=== PATIENT | male | born 1940 | race Caucasian/White ===

== ENCOUNTER 2019-04-07 01:06 | Emergency (ER) | payer MEDICARE, OTHER ==
[2019-04-07 03:20] LABS: #Basophils 0.1 thou/uL (0.0-0.2); #Eosinphils 0.2 thou/uL (0.0-0.7); #Lymphocytes 0.9 thou/uL (1.20-3.40); #Monocytes 0.8 thou/uL (0.11-0.59); #Neutrophils 5.2 thou/uL (1.40-6.50); %Basophils 0.7 % (0.0-1.0); %Eosinophils 2.5 % (0.0-10.0); %Lymphocytes 12.1 % (21.0-51.0); %Monocytes 11.4 % (0.0-10.0); %Neutrophils 73.2 % (42.0-75.0); Hemoglobin 12.7 g/dL (14.0-18.0); Mean Corpuscular HGB CONC 33.9 g/dL (32.0-36.0); Mean Corpuscular Hemoglobin 31.6 pg (27.0-31.0); Mean Corpuscular Volume 93.1 fL (78.0-98.0); Mean Platelet Volume 8.6 fL (7.4-10.4); Platelet Count 166 thou/uL (130-400); RBC Distribution Width 12.7 % (11.5-14.5); Red Blood Cell (RBC) Count 4.02 mill/uL (4.70-6.10); White Blood Cell (WBC) Count 7.1 thou/uL (4.8-10.8)
[2019-04-07 03:45] LABS: ALT (SGPT) 68 U/L (8-55); AST (SGOT) 75 U/L (5-34); Albumin 3.1 g/dL (3.4-4.8); Alkaline Phosphatase 93 U/L (40-110); Anion Gap 14 mmol/L (10-20); BUN (Urea Nitrogen) 9 mg/dL (8.4-25.7); Bilirubin, Total 0.7 mg/dL (0.2-1.2); Calc. Creatinine Clearance 0 mL/min (70-130); Calcium 8.4 mg/dL (7.8-10.44); Carbon Dioxide 23 mmol/L (23-31); Chloride 106 mmol/L (98-107); Estimated GFR-MDRD Greater than 90; Globulin 3.4 g/dL (2.4-3.5); Glucose 113 mg/dL (83-110); Potassium 3.9 mmol/L (3.5-5.1); Protein, Total 6.5 g/dL (5.8-8.1); Sodium 139 mmol/L (136-145)
--- NOTE | 2019-04-07 07:40 | CT ---
PRELIMINARY REPORT/[facility]/EMERGENCY AFTER HOURS PROCEDURE CT cervical spine Comparison: None Indication: ER 8... Possible fall; M79 reports to the ED with c/o bruising in the eyes Findings: No acute fracture or paravertebral soft tissue swelling. Degenerative change in the cervical spine. At least mild spinal canal narrowing associated with broad -based bulges of disc and bone between the levels of C4 and C7. This is most prominent at C6-7. There is at least moderate bony neuroforaminal narrowing at C5-6 and C6-7. Impression: No acute fracture or acute injury identified. Atherosclerosis. Degenerative change. No evidence of critical spinal canal narrowing. ELECTRONICALLY SIGNED BY: Jourdan Mirza MD Apr 07, 2019 2:22:05 AM HEALTH PROMOTER This report is intended for review by the ordering physician only, in accordance of law. If you recei ve this report in error, please call [facility] at [phone]. FINAL REPORT CT CERVICAL SPINE WITH CORONAL AND SAGITTAL REFORMATIONS: FINDINGS/IMPRESSION: I agree with the preliminary report given by Dr. Jourdan Mirza of [facility]. Transcribed Date/Time: 04/07/2019 7:44 AM
--- NOTE | 2019-04-07 07:52 | CT ---
PRELIMINARY REPORT/[facility]/EMERGENCY AFTER HOURS PROCEDURE CT face without contrast Comparison: None Indication: ER 8... Possible fall; M79 reports to the ED with c/o bruising in the eyes Findings: No acute fracture or dislocation. Normal airway and epiglottis. No intraorbital abnormality. Impression: No acute fracture or dislocation. ELECTRONICALLY SIGNED BY: Jourdan Mirza MD Apr 07, 2019 2:36:21 AM BOAT MECHANIC This report is intended for review by the ordering physician only, in accordance of law. If you recei ve this report in error, please call [facility] at [phone]. FINAL REPORT EMERGENT AFTER HOURS AFTER HOURS CT FACIAL BONES: IMPRESSION: Agree with the preliminary interpretation. No evidence for fracture. POS: OFF
--- NOTE | 2019-04-07 08:31 | CT ---
PRELIMINARY REPORT/[facility]/EMERGENCY AFTER HOURS PROCEDURE CT brain without contrast: Comparison: None Findings: No intracranial hemorrhage. No mass lesion. No midline shift or herniation. No definite evidence of acute ischemia or stroke. No hydrocephalus. Cerebral and cerebellar atrophy. No acute fracture. Intracranial atherosclerosis. The bones, sinuses and soft tissues are otherwise unremarkable. Impression: No acute intracranial abnormality. No fracture. ELECTRONICALLY SIGNED BY: Jourdan Mirza MD Apr 07, 2019 2:28:10 AM DIGITAL MANAGER This report is intended for review by the ordering physician only, in accordance of law. If you recei ve this report in error, please call [facility] at [phone]. FINAL REPORT EMERGENT AFTER HOURS CT OF THE BRAIN WITHOUT CONTRAST: FINDINGS/IMPRESSION: I agree with the findings and impression given in the preliminary report per [facility] physici an. No evidence of acute intracranial abnormality. POS: OFF
--- NOTE | 2019-04-09 15:04 | EKG ---
Test Reason : Blood Pressure : / mmHG Vent. Rate : 077 BPM Atrial Rate : 077 BPM P-R Int : 000 ms QRS Dur : 068 ms QT Int : 404 ms P-R-T Axes : 000 199 178 degrees QTc Int : 457 ms Normal sinus rhythm with occasional Premature ventricular complexes Septal infarct , age undetermined Lateral infarct , age undetermined Abnormal ECG Confirmed by JULISA KEVIN ([id number]), editorial manager ARISTIDES ALANIS ([id number]) on 04/09/2019 3:04:13 PM Referred By: Confirmed By:JULISA KEVIN
== END 2019-04-07 04:43 ==
LOC: ERS 01:06
DX: S00.12XA Contusion of left eyelid and periocular area, initial encounter (principal); S00.11XA Contusion of right eyelid and periocular area, initial encounter; R11.10 Vomiting, unspecified; R19.7 Diarrhea, unspecified; E78.00 Pure hypercholesterolemia, unspecified; M10.9 Gout, unspecified; F03.90 Unspecified dementia, unspecified severity, without behavioral disturbance, psychotic disturbance, mood disturbance, and anxiety; Z87.891 Personal history of nicotine dependence; Z79.899 Other long term (current) drug therapy
CPT/HCPCS: 70450; 70486; 72125; 80053; 84484; 85025; 93005

== ENCOUNTER 2020-04-03 11:38 | Inpatient (IN) | payer MEDICARE, OTHER ==
[2020-04-03 13:47] LABS: #Lymphocytes 0.9 thou/uL (1.20-3.40); #Monocytes 0.9 thou/uL (0.11-0.59); #Neutrophils 8.2 thou/uL (1.40-6.50); %Basophils 0.4 % (0.0-1.0); %Eosinophils 0.3 % (0.0-10.0); %Lymphocytes 9.3 % (21.0-51.0); %Monocytes 8.6 % (0.0-10.0); %Neutrophils 81.4 % (42.0-75.0); Hemoglobin 14.7 g/dL (14.0-18.0); Mean Corpuscular HGB CONC 32.8 g/dL (32.0-36.0); Mean Corpuscular Volume 94.6 fL (78.0-98.0); Mean Platelet Volume 10.3 fL (7.4-10.4); Platelet Count 117 thou/uL (130-400); RBC Distribution Width 14.2 % (11.5-14.5); Red Blood Cell (RBC) Count 4.76 mill/uL (4.70-6.10); White Blood Cell (WBC) Count 10.1 thou/uL (4.8-10.8)
--- NOTE | 2020-04-03 13:57 | RAD ---
Exam: Chest one view HISTORY:Possible allergic reaction Comparison: None FINDINGS: Cardiac silhouette: Normal Aorta: Atherosclerotic Pulmonary vessels: Normal Costophrenic angles: Clear LUNGS: Diminished lung volumes. Scattered interstitial and alveolar opacities. Left lower lobe infilt rate. Pneumothorax: None Osseous abnormalities: None IMPRESSION: 1. Atherosclerosis 2. Left lower lobe infiltrate. Scattered interstitial and alveolar opacities. Correlate for additiona l areas of infiltrate, possibly due to an atypical pneumonia. Correlate for patient's COVID status.
[2020-04-03 14:04] LABS: Platelet Morphology Comment Appears Decreased; RBC Morphology Normal
[2020-04-03] MEDS ORDERED: Cefepime 2 GM VIAL ONE (14:06)
[2020-04-03 14:08] LABS: ALT (SGPT) 19 U/L (8-55); AST (SGOT) 19 U/L (5-34); Albumin 3.2 g/dL (3.4-4.8); Alkaline Phosphatase 127 U/L (40-110); Anion Gap 12 mmol/L (10-20); BUN (Urea Nitrogen) 16 mg/dL (8.4-25.7); Bilirubin, Total 1.1 mg/dL (0.2-1.2); Calc. Creatinine Clearance 0 mL/min (70-130); Calcium 8.6 mg/dL (7.8-10.44); Carbon Dioxide 27 mmol/L (23-31); Chloride 119 mmol/L (98-107); Globulin 3.9 g/dL (2.4-3.5); Glucose 108 mg/dL (83-110); Potassium 3.3 mmol/L (3.5-5.1); Protein, Total 7.1 g/dL (5.8-8.1); Sodium 155 mmol/L (136-145)
[2020-04-03] MEDS ORDERED: Vancomycin 1 GM/200 ML BAG ONE (15:03)
[2020-04-03] MEDS ORDERED: methylPREDNISolone Sod Succ/PF 125 MG/2 ML VIAL ONE (15:37)
[2020-04-03 16:53] LABS: SARS-CoV-2 NAA Rapid Test DETECTED (NotDetected)
[2020-04-03] MEDS ORDERED: Acetaminophen 325 MG TAB PO PRN (17:14)
[2020-04-03] MEDS ORDERED: Senokot S 8.6-50 MG TAB PO PRN (17:14)
[2020-04-03] MEDS ORDERED: Acetaminophen 650 MG Suppository PR PRN (17:14)
[2020-04-03] MEDS ORDERED: Sodium Chloride 0.9% 1,000 ML IV SCH (17:15)
[2020-04-03] MEDS ORDERED: diphenhydrAMINE 50 MG/ML VIAL IVP PRN (17:19)
--- NOTE | 2020-04-03 18:47 | HP ---
CHIEF COMPLAINT: Swollen lips. HISTORY OF PRESENT ILLNESS: A 80-year-old male, residing at [facility], history of Alzheimer, presenting with lip swelling for the last 12 hours or so. He was tested positive roughly two weeks ago and chest x-ray here showed left lower lobe infiltrate and scattered interstitial and alveolar opacities. [facility], it appears that they noticed lip swelling only this morning. The patient is not taking lisinopril. He is not diabetic. He does have a history of gout. There is a concern whether the COVID is related to the swelling of the lips. The patient also presenting with sodium of 155 and potassium 3.3. With dementia, it appears that he is not having any good p.o. intake. Currently, he is protecting his airway. No palpable nodes appreciated in the neck. He will be admitted for cellulitis around the lip swelling as well as COVID pneumonia. is at bedside giving me some information that the swelling is only started this morning. They did notice anything at the jail last evening. [facility]. REVIEW OF SYSTEMS: Not obtainable directly from the patient. However, it is noted that he did not have any recent fever, chills. However, he was tested positive for COVID two weeks ago. PAST MEDICAL HISTORY: 1. Alzheimer's dementia. 2. Chronic anemia. 3. Hypertension. 4. Hyperlipidemia. 5. Gout. 6. Dementia. SOCIAL HISTORY: The patient lives at [facility]. FAMILY HISTORY: Noncontributory. PHYSICAL EXAMINATION: VITAL SIGNS: He is afebrile currently. Normotensive in the monitor. GENERAL: He appears nontoxic, protecting his airway. He is oriented to himself. HEENT: His lips are moderately swollen and erythema and tender. No lymph nodes palpable. tongue is not swollen also he is not able to open his mouth wide. CARDIOVASCULAR: Regular rate and rhythm without murmurs, rubs, or gallops. LUNGS: Clear to auscultation bilaterally without wheezing, rales, or rhonchi. ABDOMEN: Soft, nontender, nondistended. Good bowel sounds. EXTREMITIES: Without any pitting edema and rash. NEUROLOGIC: The patient is oriented to himself with underlying history of dementia. He is moving his extremities spontaneously. LABORATORY DATA: Sodium 155, potassium 3.3, alkaline phosphatase 127. Rest of the CMP panel in the normal range. CBC: WBC 10.1, hemoglobin 14.7, platelet is 117,000. IMAGING DATA: Chest x-ray, left lower lobe infiltrate. IMPRESSION AND PLAN: This is a 80-year-old demented gentleman presenting with angioedema. 1. The patient is not on lisinopril. There is concern whether this is related to COVID as he was tested positive roughly two weeks ago. We will monitor him closely. Meanwhile, provide Solu-Medrol, Protonix, and Benadryl as needed. Given the cellulitis around the lips, I will also cover him with clindamycin. 2. We will probably have to do screening again for admission purpose. I also got a C1 esterase inhibitor, but it is a low threshold to be related. 3. Hypernatremia. Obviously, the patient is not oriented to be able to have some good p.o. intake, IV fluid and repeat the sodium level in the morning. 4. His creatinine is in the normal range. We will put him DVT prophylaxis, Lovenox. COVID is tested and it came back positive, so continue with IV steroid and I will defer putting him on any p.o. vitamins until the speech therapy evaluate him. He will be strict n.p.o. for now. 5. Full code. Job ID: [id number] MTDD
[2020-04-03] MEDS ORDERED: Dextrose 5 %-0.45 % NaCl 1,000 ML IV SCH (19:30)
[2020-04-03] MEDS ORDERED: Dextrose 5% w/ 20 mEq KCl 1,000 ML IV SCH (19:45)
[2020-04-03] MEDS: Clindamycin/D5W 600 MG in Premix Bag 1 BAG IVPB SCH (21:15)
[2020-04-03] MEDS: methylPREDNISolone Sod Succ 40 MG VIAL IVP SCH (23:30)
[2020-04-04] MEDS ORDERED: Lorazepam 2 MG/ML VIAL ONE (02:00)
[2020-04-04] MEDS ORDERED: Clindamycin/D5W 600 mg/50 ml Premix Bag ONE (03:59)
[2020-04-04] MEDS: Clindamycin/D5W 600 MG in Premix Bag 1 BAG IVPB SCH ×3 (05:25→21:22)
[2020-04-04 07:14] LABS: Anion Gap 11 mmol/L (10-20); BUN (Urea Nitrogen) 19 mg/dL (8.4-25.7); Calc. Creatinine Clearance 70 mL/min (70-130); Calcium 8.1 mg/dL (7.8-10.44); Carbon Dioxide 27 mmol/L (23-31); Chloride 119 mmol/L (98-107); Glucose 171 mg/dL (83-110); Potassium 3.4 mmol/L (3.5-5.1); Sodium 154 mmol/L (136-145)
[2020-04-04 07:17] LABS: Hemoglobin 12.4 g/dL (14.0-18.0); Mean Corpuscular HGB CONC 32.9 g/dL (32.0-36.0); Mean Corpuscular Hemoglobin 31.1 pg (27.0-31.0); Mean Corpuscular Volume 94.6 fL (78.0-98.0); Mean Platelet Volume 10.5 fL (7.4-10.4); Platelet Count 105 thou/uL (130-400); RBC Distribution Width 13.6 % (11.5-14.5)
[2020-04-04 08:31] LABS: Band 25 % (5-11); Lymphocytes 7 % (21-51); MDiff Complete? YES; Monocytes 2 % (0-10); Neutrophil 65 % (42-75); Platelet Morphology Comment Appears Decreased; Polychromasia SLIGHT = 2-3 cells (100X) (0-2/hpf); Reactive Lymphocytes 1 % (0-10)
[2020-04-04] MEDS: Pantoprazole 40 MG VIAL IVP SCH (08:33)
[2020-04-04] MEDS: methylPREDNISolone Sod Succ 40 MG VIAL IVP SCH ×3 (08:33→23:01)
[2020-04-04] MEDS ORDERED: Calcium Carbonate 500 MG ChewTAB PO PRN (08:43)
[2020-04-04] MEDS ORDERED: Ondansetron PF 4 MG/2 ML Vial IVP PRN (08:43)
[2020-04-04] MEDS ORDERED: Diabetic Tussin 200 MG/10 ML UDCUP PO PRN (08:43)
[2020-04-04] MEDS ORDERED: Loratadine 10 MG TAB PO PRN (08:43)
[2020-04-04] MEDS ORDERED: Ondansetron ODT 4 MG TAB PO PRN (08:43)
[2020-04-04] MEDS ORDERED: hydrALAZINE 20 MG/ML VIAL SLOW IVP PRN (08:43)
[2020-04-04] MEDS ORDERED: Cepastat Lozenges 1 LOZ PO PRN (08:43)
[2020-04-04] MEDS ORDERED: Sodium Chloride 0.65% Nasal 44 ML BOT EA NARE PRN (08:43)
[2020-04-04] MEDS ORDERED: Zolpidem Tartrate 5 MG TAB PO PRN (08:43)
[2020-04-04] MEDS ORDERED: Loperamide HCl 2 MG CAP PO PRN (08:43)
[2020-04-04] MEDS: Enoxaparin Sodium 40 MG/0.4 ML SYRINGE SC SCH (10:25)
--- NOTE | 2020-04-04 12:10 | PDOC.HOSPP ---
- Subjective Encounter Date: 04/04/20 Encounter Time: 08:40 Subjective: Patient is delirious, he is not following any command, - Objective Vital Signs & Weight: Vital Signs (12 hours) Temp Pulse Resp BP Pulse Ox 04/04/20 08:00 97.3 F L 53 L 21 H 144/78 H 93 L Weight Weight 150 lb 6.4 oz I&O: 04/03/20 04/04/20 04/05/20 06:59 06:59 06:59 Intake Total 640 Balance 640 Result Diagrams: 04/04/20 06:38 04/04/20 06:38 Radiology Reviewed by me: Yes Hospitalist ROS - Review of Systems ROS unobtainable: due to mental status - Medication Medications: Active Medications Generic Name Dose Route Start Last Admin Trade Name Freq PRN Reason Stop Dose Admin Enoxaparin Sodium 40 mg 04/04/20 09:00 04/04/20 10:25 Enoxaparin Sodium 40 Mg/0.4 Ml Syringe SC Not Given DAILY ANURAG Clindamycin Phosphate/Dextrose 50 mls @ 100 mls/hr 04/03/20 22:00 04/04/20 05:25 600 mg/ Device IVPB Not Given Q8HR ANURAG Potassium Chloride/Dextrose 1,000 mls @ 50 mls/hr 04/03/20 19:45 04/03/20 21:42 D5w W/ 20 Meq Kcl IV 04/04/20 15:44 1,000 mls .Q20H ANURAG Administration Methylprednisolone Sodium Succinate 40 mg 04/03/20 23:59 04/04/20 08:33 Methylprednisolone Sod Succ 40 Mg Vial IVP 40 mg 0800,1600,2359 ANURAG Administration Pantoprazole Sodium 40 mg 04/04/20 09:00 04/04/20 08:33 Pantoprazole 40 Mg Vial IVP 40 mg DAILY ANURAG Administration - Exam General Appearance: NAD, ill appearing Eye: PERRL, anicteric sclera ENT: dry oral mucosa ENT - other findings: Poor oral hygiene Neck: supple, symmetric, no JVD, no thyromegaly Heart: RRR, no murmur, no gallops, no rubs Respiratory: no wheezes, no rales, no ronchi Respiratory - other findings: Coarse breath sound Gastrointestinal: soft, non-tender, non-distended Extremities: no clubbing, no edema Skin: normal turgor, no lesions Neurological - other findings: He moves all 4 limbs, Hosp A/P (1) Pneumonia due to 2019 novel coronavirus Code(s): U07.1 - COVID-19; J12.82 - PNEUMONIA DUE TO CORONAVIRUS DISEASE 2019 Status: Acute (2) Acute metabolic encephalopathy Code(s): G93.41 - METABOLIC ENCEPHALOPATHY Status: Acute (3) Hypernatremia Code(s): E87.0 - HYPEROSMOLALITY AND HYPERNATREMIA Status: Acute (4) Hypokalemia Code(s): E87.6 - HYPOKALEMIA Status: Acute (5) Dehydration Code(s): E86.0 - DEHYDRATION Status: Acute (6) COVID-19 Code(s): U07.1 - COVID-19 Status: Acute (7) Alzheimer's dementia Code(s): G30.9 - ALZHEIMER'S DISEASE, UNSPECIFIED; F02.80 - DEMENTIA IN OTH DISEASES CLASSD ELSWHR W/O BEHAVRL DISTURB Status: Chronic Qualifiers: Alzheimer's disease onset: late-onset Dementia behavioral disturbance: with behavioral disturbance Qualified Code(s): G30.1 - Alzheimer's disease with late onset; F02.81 - Dementia in other diseases classified elsewhere with be havioral disturbance - Plan old records reviewed/req, continue antibiotics, speech therapy, DVT proph w/lovenox Continue clindamycin for suspected aspiration pneumonia Speech therapy evaluated and cleared for diet change IV fluid to dextrose with water for hypernatremia Replace potassium Oral hygiene Medication reviewed and continue for symptomatic and supportive care We will repeat labs tomorrow Change to inpatient status I have left voicemail to patient's about current condition and updated plan
[2020-04-04] MEDS: Dextrose 5% in Water 1,000 ML IV SCH ×2 (12:27→21:23)
[2020-04-04 13:08] VITALS: BMI 24.3
[2020-04-05] MEDS: Dextrose 5% in Water 1,000 ML IV SCH (04:05)
[2020-04-05] MEDS: Clindamycin/D5W 600 MG in Premix Bag 1 BAG IVPB SCH ×2 (06:00→15:12)
[2020-04-05 06:52] LABS: #Lymphocytes 1.1 thou/uL (1.20-3.40); #Monocytes 0.5 thou/uL (0.11-0.59); #Neutrophils 10.9 thou/uL (1.40-6.50); %Basophils 0.1 % (0.0-1.0); %Lymphocytes 8.9 % (21.0-51.0); %Monocytes 3.8 % (0.0-10.0); %Neutrophils 87.2 % (42.0-75.0); Hemoglobin 12.7 g/dL (14.0-18.0); Mean Corpuscular HGB CONC 33.5 g/dL (32.0-36.0); Mean Corpuscular Volume 92.4 fL (78.0-98.0); Mean Platelet Volume 10.5 fL (7.4-10.4); Platelet Count 123 thou/uL (130-400); RBC Distribution Width 13.5 % (11.5-14.5); White Blood Cell (WBC) Count 12.5 thou/uL (4.8-10.8)
[2020-04-05 07:12] LABS: Anion Gap 13 mmol/L (10-20); BUN (Urea Nitrogen) 19 mg/dL (8.4-25.7); Calc. Creatinine Clearance 69 mL/min (70-130); Calcium 8.1 mg/dL (7.8-10.44); Carbon Dioxide 26 mmol/L (23-31); Chloride 113 mmol/L (98-107); Glucose 137 mg/dL (83-110); Potassium 3.7 mmol/L (3.5-5.1); Sodium 148 mmol/L (136-145)
[2020-04-05] MEDS: Pantoprazole 40 MG VIAL IVP SCH (08:19)
[2020-04-05] MEDS: Enoxaparin Sodium 40 MG/0.4 ML SYRINGE SC SCH (08:20)
[2020-04-05] MEDS: methylPREDNISolone Sod Succ 40 MG VIAL IVP SCH ×2 (08:20→16:12)
--- NOTE | 2020-04-05 11:06 | PDOC.DS.DS ---
Provider - Provider Date of Admission: 04/04/20 12:08 Date of Discharge: 04/05/20 Admitting Provider: Mally Bennett MD Primary Care Physician: Curt Ridley MD Course - Hospital Course Hospital Course: Patient has Alzheimer's dementia, he was brought to emergency room for suspected lip swelling, patient was not able to provide any history, patient was tested positive for COVID-19, he had x-ray chest which showed left lower lobe pneumonia which we suspected from either aspiration or Covid related, patient was on room air, while in hospital, he had free water deficit5 patient was given dextrose with water and his sodium and chloride was improving, on discharge his leukocytosis related to the steroid because he was given Solu-Medrol for presumed angioedema, next day patient laboratory parameters were normal, he was also given clindamycin, we continued clindamycin for another 7 days, his influenza screen is negative, his Covid test is positive so we have provided vitamin supplementation, he will continue all other medication, speech therapy cleared him for diet, - Labs Lab Results: 04/05/20 06:22 04/05/20 06:22 Abnormal Lab Results - Last 48 hrs 04/03/20 13:25: Sodium 155 H, Potassium 3.3 L, Chloride 119 H, Alkaline Andriy sphatase 127 H, Albumin 3.2 L, Globulin 3.9 H, Albumin/Globulin Ratio 0.8 L 04/03/20 13:25: Plt Count 117 L, Neutrophils % 81.4 H, Lymphocytes % 9.3 L, Neutrophils # 8.2 H, Lymphocytes # 0.9 L, Monocytes # 0.9 H, Plt Morphology Comment Appears Decreased L 04/03/20 15:37: SARS-CoV-2 Rap RNA(RT-PCR) DETECTED A* 04/03/20 18:09: C-Reactive Protein 8.16 H 04/04/20 06:38: Sodium 154 H, Potassium 3.4 L, Chloride 119 H 04/04/20 06:38: RBC 4.00 L, Hgb 12.4 L, Hct 37.8 L, MCH 31.1 H, Plt Count 105 L, MPV 10.5 H, Band Neuts % (Manual) 25 H, Lymphocytes % (Manual) 7 L, Plt Morphol ogy Comment Appears Decreased L 04/05/20 06:22: Sodium 148 H, Chloride 113 H 04/05/20 06:22: WBC 12.5 H, RBC 4.10 L, Hgb 12.7 L, Hct 37.9 L, Plt Count 123 L, MPV 10.5 H, Neutrophils % 87.2 H, Lymphocytes % 8.9 L, Neutrophils # 10.9 H, Lymphocytes # 1.1 L Microbiology - Entire Visit 04/03/20 13:34 Venous blood - Right Arm Blood Culture - Preliminary Specimen has been received and culture in progress. No Growth to date. 04/03/20 13:25 Venous blood - Left Arm Blood Culture - Preliminary Specimen has been received and culture in progress. No Growth to date. - Diagnostic Interpretation Other Status: image reviewed by me Chest x-ray Status: image reviewed by me Additional comments: Left lower lobe infiltration - Physical Exam Vitals: Vital Signs (12 hours) Temp Pulse Resp BP BP Pulse Ox 04/05/20 07:24 97.6 F 81 15 113/72 96 04/05/20 04:00 97.1 F L 52 L 18 142/86 H 97 Weight Admit Weight 150 lb 6.4 oz Weight 150 lb 9.6 oz Physical Exam: The patient was seen and examined on the day of discharge. General patient is currently alert and awake no acute distress Head normocephalic atraumatic Neck supple no JVD no meningeal signs of rotation Lungs clear to auscultation without any rhonchi or rales Cardiac S1-S2 regular, no murmur no gallop no rub Abdomen soft, bowel sound present, nontender nondistended no organomegaly no mass Extremity no edema good distal pulsation Skin no skin rash Hematological system no lymphadenopathy Neurologic nonfocal examination Problem - Problem (1) Pneumonia due to 2019 novel coronavirus Code(s): U07.1 - COVID-19; J12.82 - PNEUMONIA DUE TO CORONAVIRUS DISEASE 2019 Status: Acute (2) Acute metabolic encephalopathy Code(s): G93.41 - METABOLIC ENCEPHALOPATHY Status: Acute (3) Hypernatremia Code(s): E87.0 - HYPEROSMOLALITY AND HYPERNATREMIA Status: Acute (4) Hypokalemia Code(s): E87.6 - HYPOKALEMIA Status: Acute (5) Dehydration Code(s): E86.0 - DEHYDRATION Status: Acute (6) COVID-19 Code(s): U07.1 - COVID-19 Status: Acute (7) Alzheimer's dementia Code(s): G30.9 - ALZHEIMER'S DISEASE, UNSPECIFIED; F02.80 - DEMENTIA IN OTH DISEASES CLASSD ELSWHR W/O BEHAVRL DISTURB Status: Chronic Qualifiers: Alzheimer's disease onset: late-onset Dementia behavioral disturbance: with behavioral disturbance Qualified Code(s): G30.1 - Alzheimer's disease with late onset; F02.81 - Dementia in other diseases classified elsewhere with behavioral disturbance Plan - Discharge Medications Prescriptions: Clindamycin HCl 300 mg PO Q6HR #30 capsule Famotidine [Pepcid] 20 mg PO BID #30 tab Ascorbic Acid [Vitamin C] 1,000 mg PO DAILY #14 tablet Zinc Sulfate 220 mg PO DAILY #14 tablet Home Medications: Medication Instructions Recorded Confirmed Type Allopurinol 100 mg PO DAILY 10/18/13 10/18/13 History Atorvastatin Calcium [Lipitor] 20 mg PO DAILY 10/18/13 10/18/13 History Memantine HCl [Namenda] 10 mg PO BID 10/18/13 10/18/13 History Acetaminophen [Tylenol Regular 650 mg PO Q4HR PRN 10/22/13 10/22/13 History Strength] Ferrous Sulfate [Iron] 325 mg PO BID-WM 10/22/13 10/22/13 History Ascorbic Acid [Vitamin C] 1,000 mg PO DAILY #14 tablet 04/05/20 Rx Clindamycin HCl 300 mg PO Q6HR #30 capsule 04/05/20 Rx Famotidine [Pepcid] 20 mg PO BID #30 tab 04/05/20 Rx Zinc Sulfate 220 mg PO DAILY #14 tablet 04/05/20 Rx Allergies: No Known Drug Allergies Allergy (Verified 04/03/20 20:12) - Discharge Instructions Activity:: Activity as Tolerated Nourishment:: Heart Healthy Diet Additional Dietary Instructions:: Extra gravy with sauce. Thin liquid by cup Therapies:: Not Applicable Equipment/Supplies:: Not Applicable IV Therapy:: Not Applicable - Follow up Plan Referrals: Curt Ridley MD [Primary Care Provider] - Disposition: HOME Quality - Care Measures CORE MEASURES:: N/A
[2020-04-05 16:04] VITALS: BP 128/72; TEMP 97.9
== END 2020-04-05 17:30 | DRG 177 ==
LOC: ERS 11:38 → T4-B 16:02 → OBSVTOIN 04-04 12:08
PROVIDERS: ADMIT Internal Medicine; ATTEND Internal Medicine
DX: U07.1 COVID-19 (principal); J12.82 Pneumonia due to coronavirus disease 2019; G93.41 Metabolic encephalopathy; L03.116 Cellulitis of left lower limb; E87.0 Hyperosmolality and hypernatremia; E78.00 Pure hypercholesterolemia, unspecified; M10.9 Gout, unspecified; F02.80 Dementia in other diseases classified elsewhere, unspecified severity, without behavioral disturbance, psychotic disturbance, mood disturbance, and anxiety; I10 Essential (primary) hypertension; E78.5 Hyperlipidemia, unspecified; K13.0 Diseases of lips; D64.9 Anemia, unspecified; G30.9 Alzheimer's disease, unspecified; E86.0 Dehydration; E87.6 Hypokalemia; Z87.891 Personal history of nicotine dependence; Z79.899 Other long term (current) drug therapy
CPT/HCPCS: 0240U; 36415; 71045; 80048; 80053; 83605; 85007; 85025; 85027; 86140; 86161; 87040; 96365; 96366; 96367; 96375; C9113; J0692; J1650; J2060; J2920; J2930; J3370; J3480; J3490

== ENCOUNTER 2020-04-08 09:23 | Inpatient (IN) | payer MEDICARE, OTHER ==
--- NOTE | 2020-04-08 10:13 | RAD ---
XR Chest 1 View Portable History: Altered mental status Comparison: Radiograph 2006 Findings: Lungs are hypoinflated. Heart size is enlarged. Concern for patchy peripheral airspace opac ities. Impression: Commonly reported imaging findings of COVID-19 pneumonia.
[2020-04-08 10:22] LABS: Bilirubin Negative (Negative); Blood, Urine Negative (Negative); Clarity Clear (Clear); Glucose, Urine (Dipstick) Normal (Negative); Ketone, Urine Negative (Negative); Leukocyte Negative Leu/uL (Negative); Nitrite Negative (Negative); Protein, Urine (Dipstick) Negative (Neg-Trace); Specific Gravity, Urine 1.022 (1.002-1.036); Urobilinogen 3 mg/dL (Less than 2)
[2020-04-08 10:26] LABS: Hemoglobin 14.4 g/dL (14.0-18.0); Mean Corpuscular HGB CONC 34.2 g/dL (32.0-36.0); Mean Corpuscular Hemoglobin 31.2 pg (27.0-31.0); Mean Corpuscular Volume 91.1 fL (78.0-98.0); RBC Distribution Width 13.6 % (11.5-14.5); White Blood Cell (WBC) Count 6.5 thou/uL (4.8-10.8)
[2020-04-08 10:30] LABS: ALT (SGPT) 21 U/L (8-55); AST (SGOT) 20 U/L (5-34); Albumin 3.4 g/dL (3.4-4.8); Alkaline Phosphatase 123 U/L (40-110); Anion Gap 14 mmol/L (10-20); BUN (Urea Nitrogen) 16 mg/dL (8.4-25.7); CK (CPK) 82 U/L (30-200); Calc. Creatinine Clearance 0 mL/min (70-130); Calcium 8.1 mg/dL (7.8-10.44); Carbon Dioxide 27 mmol/L (23-31); Chloride 104 mmol/L (98-107); Globulin 3.2 g/dL (2.4-3.5); Glucose 137 mg/dL (83-110); Lipase 102 U/L (8-78); Potassium 3.1 mmol/L (3.5-5.1); Protein, Total 6.6 g/dL (5.8-8.1); Sodium 142 mmol/L (136-145)
[2020-04-08 10:39] LABS: #Eosinphils 0.1 thou/uL (0.0-0.7); #Lymphocytes 1.3 thou/uL (1.20-3.40); #Monocytes 0.3 thou/uL (0.11-0.59); #Neutrophils 4.8 thou/uL (1.40-6.50); %Basophils 0.4 % (0.0-1.0); %Eosinophils 1.2 % (0.0-10.0); %Lymphocytes 19.9 % (21.0-51.0); %Monocytes 4.7 % (0.0-10.0); %Neutrophils 73.9 % (42.0-75.0); Large Platelets SLIGHT; MDiff Complete? YES; Mean Platelet Volume 10.5 fL (7.4-10.4); Platelet Count 107 thou/uL (130-400); Platelet Morphology Comment Appears Decreased
[2020-04-08 10:51] LABS: CKMB 2.9 ng/mL (0-6.6)
[2020-04-08] MEDS ORDERED: Aspirin Chewable 81 MG TAB ONE (10:58)
[2020-04-08] MEDS ORDERED: Azithromycin 500 MG VIAL ONE (10:58)
[2020-04-08] MEDS ORDERED: Dexamethasone 10 MG/ML VIAL ONE (10:58)
[2020-04-08] MEDS ORDERED: cefTRIAXone\\ROCEPHIN 2 GM VIAL ONE (10:58)
--- NOTE | 2020-04-08 11:41 | PDOC.HHP ---
Hospitalist HPI - History of Present Illness hypotension, COVID History of Present Illness: Patient lying in ER bed, appears to be sleeping. Easily arousable but non verbal. Vitals stable at time of assessment. 98% on RA. 98/72 BP. Patient was positive for COVID 1 week ago. Lives at [facility]. Dr. Cho is patient's PCP. Medical records obtained from [facility]. ED Course: EKG Showed NSR at 90 bpm. UA negative, WBC normal at 6.5. Patient was given Azithromycin, Lovenox, aspirin, Ceftriaxone, Decadron while in ER. Hospitalist ROS - Review of Systems ROS unobtainable: due to mental status - Medication Medications: Clindamycin 300mg 1 capsule oral every 6 hours Famotidine 20mg 1 tablet oral daily Vitamin C 1000mg 1 tablet oral daily Zinc Sulfate 220mg 1 tablet oral daily Namenda 10mg 1 tablet oral BID Atorvastatin 20mg 1 tablet oral daily Allopurinol 100mg 1 tablet oral daily Tylenol 650mg 1 tablet oral Q4hrs PRN pain Ferrous Sulfate 325mg 1 tablet oral BID with meals Hospitalist History - Past Medical History Source: fdc record ([facility]) Cardiac: reports: Hyperlipidemia Pulmonary: reports: no pertinent history SAMPLE CLERK: reports: Other (Alzheimers) Gastrointestinal: reports: no pertinent history, GERD Heme/Onc: reports: no pertinent history Musculoskeletal: reports: no pertinent history Rheumatologic: reports: Gout Infectious Disease: reports: no pertinent history ENT: reports: no pertinent history Renal/: reports: no pertinent history Endocrine: reports: no pertinent history Dermatology: reports: no pertinent history - Past Surgical History Past Surgical History: reports: Hernia Repair (inguinal) - Family History Family History: reports: no pertinent history - Social History Smoking Status: Never smoker Alcohol: reports: None Drugs: reports: none Living Situation: Snf ([facility]) Domestic Violence: Negative - Exam General Appearance: NAD Eye: PERRL (conjunctiva), anicteric sclera ENT: normocephalic atraumatic, no oropharyngeal lesions, moist mucosa Neck: supple, symmetric, no JVD, no thyromegaly, no lymphadenopathy, no carotid bruit Heart: RRR, no murmur, no gallops, no rubs, normal peripheral pulses Respiratory: CTAB, no wheezes, no rales, no ronchi, normal chest expansion, no tachypnea, normal percussion Gastrointestinal: soft, non-tender, non-distended, normal bowel sounds, no palpable masses, no hepatomegaly, no splenomegaly, no bruit Skin: normal turgor, no lesions, no rashes Neurological: cranial nerve grossly intact, normal sensation to touch Musculoskeletal: normal tone, normal strength, no muscle wasting Psychiatric: normal affect, normal behavior, not oriented Hospitalist Results - Labs Result Diagrams: 04/08/20 09:55 04/08/20 09:55 Lab results: WBC 6.5 thou/uL (4.8-10.8) 04/08/20 09:55 Hgb 14.4 g/dL (14.0-18.0) 04/08/20 09:55 Hct 41.9 % (42.0-52.0) L 04/08/20 09:55 MCV 91.1 fL (78.0-98.0) 04/08/20 09:55 Plt Count 107 thou/uL (130-400) L 04/08/20 09:55 Neutrophils % 73.9 % (42.0-75.0) 04/08/20 09:55 Sodium 142 mmol/L (136-145) 04/08/20 09:55 Potassium 3.1 mmol/L (3.5-5.1) L 04/08/20 09:55 Chloride 104 mmol/L (98-107) 04/08/20 09:55 Carbon Dioxide 27 mmol/L (23-31) 04/08/20 09:55 BUN 16 mg/dL (8.4-25.7) 04/08/20 09:55 Creatinine 0.96 mg/dL (0.7-1.3) 04/08/20 09:55 Glucose 137 mg/dL (83-110) H 04/08/20 09:55 Lactic Acid 2.0 mmol/L (0.5-2.2) 04/08/20 09:55 Calcium 8.1 mg/dL (7.8-10.44) 04/08/20 09:55 Total Bilirubin 1.0 mg/dL (0.2-1.2) 04/08/20 09:55 AST 20 U/L (5-34) 04/08/20 09:55 ALT 21 U/L (8-55) 04/08/20 09:55 Alkaline Phosphatase 123 U/L (40-110) H 04/08/20 09:55 Creatine Kinase 82 U/L (30-200) 04/08/20 09:55 CK-MB (CK-2) 2.9 ng/mL (0-6.6) 04/08/20 09:55 Troponin I 0.029 ng/mL (< 0.028) H 04/08/20 09:55 B-Natriuretic Peptide 62.4 pg/mL (0-100) 04/08/20 09:55 Serum Total Protein 6.6 g/dL (5.8-8.1) 04/08/20 09:55 Albumin 3.4 g/dL (3.4-4.8) 04/08/20 09:55 Lipase 102 U/L (8-78) H 04/08/20 09:55 Urine Ketones Negative mg/dL (Negative) 04/08/20 10:03 Urine Blood Negative (Negative) 04/08/20 10:03 Urine Nitrite Negative (Negative) 04/08/20 10:03 Ur Leukocyte Esterase Negative Ashley/uL (Negative) 04/08/20 10:03 Hospitalist H&P A/P - Problem (1) Hypotension Status: Acute (2) Pneumonia due to COVID-19 virus Code(s): U07.1 - COVID-19; J12.82 - PNEUMONIA DUE TO CORONAVIRUS DISEASE 2019 Status: Acute (3) Alzheimer's disease Code(s): G30.9 - ALZHEIMER'S DISEASE, UNSPECIFIED; F02.80 - DEMENTIA IN OTH DISEASES CLASSD ELSWHR W/O BEHAVRL DISTURB Status: Chronic (4) Hyperlipidemia Code(s): E78.5 - HYPERLIPIDEMIA, UNSPECIFIED Status: Chronic (5) Gout Code(s): M10.9 - GOUT, UNSPECIFIED Status: Chronic (6) GERD (gastroesophageal reflux disease) Code(s): K21.9 - GASTRO-ESOPHAGEAL REFLUX DISEASE WITHOUT ESOPHAGITIS Status: Chronic - Plan Plan: 80 year old male with history of Alzheimer's, hyperlipidemia, Gout and GERD. Patient is a resident of [facility]. Hypotension: -continue to monitor BP. -Reported the fdc, appears normal at ER. -IV fluid bolus as needed. COVID pneumonia: -Draw inflammatory markers. -Decadron held due to patient not being hypoxic. -Patient on RA in ER, maintaing oxygen, oxygen assistance as needed. -Albuterol inhaler. -Start Pantoprazole. -Start Vitamins -WBC normal. Alzheimers: -Continue Namenda home medication. Hyperlipidemia: -Continue Atorvastatin home medication. Gout: -Continue Allopurinol home medication. GERD: -Continue Famotidine home medication. Elevated lipase: -Repeat lipase Continue current home medications.
[2020-04-08] MEDS ORDERED: Enoxaparin Sodium 60 MG/0.6 ML SYRINGE ONE (11:59)
[2020-04-08] MEDS ORDERED: Albuterol 200 PUFF (6.7GM INHALER) INH PRN (12:12)
[2020-04-08 14:02] LABS: Troponin I 0.022 ng/mL (< 0.028)
[2020-04-08 15:57] VITALS: BMI 26.3
[2020-04-09] MEDS ORDERED: Potassium Phosphate 30 MMOL in Sodium Chloride 0.9% 250 ML 250 ML IVPB SCH (07:45)
[2020-04-09 08:47] LABS: #Eosinphils 0.1 thou/uL (0.0-0.7); #Lymphocytes 2.4 thou/uL (1.20-3.40); #Monocytes 0.7 thou/uL (0.11-0.59); %Basophils 0.4 % (0.0-1.0); %Eosinophils 1.2 % (0.0-10.0); %Lymphocytes 25.8 % (21.0-51.0); %Monocytes 7.1 % (0.0-10.0); %Neutrophils 65.5 % (42.0-75.0); Hemoglobin 13.4 g/dL (14.0-18.0); Mean Corpuscular HGB CONC 34.1 g/dL (32.0-36.0); Mean Corpuscular Hemoglobin 30.9 pg (27.0-31.0); Mean Corpuscular Volume 90.5 fL (78.0-98.0); Mean Platelet Volume 10.5 fL (7.4-10.4); Platelet Count 110 thou/uL (130-400); RBC Distribution Width 13.5 % (11.5-14.5); Red Blood Cell (RBC) Count 4.33 mill/uL (4.70-6.10); White Blood Cell (WBC) Count 9.1 thou/uL (4.8-10.8)
[2020-04-09] MEDS: Enoxaparin Sodium 40 MG/0.4 ML SYRINGE SC SCH (08:55)
[2020-04-09] MEDS: Ascorbic Acid 500 mg Chewable Tablet PO SCH (08:56)
[2020-04-09] MEDS: Cholecalciferol 1,000 UNITS (25 MCG) TAB PO SCH (08:56)
[2020-04-09 09:03] LABS: Anion Gap 14 mmol/L (10-20); BUN (Urea Nitrogen) 10 mg/dL (8.4-25.7); Calc. Creatinine Clearance 96 mL/min (70-130); Calcium 7.6 mg/dL (7.8-10.44); Carbon Dioxide 19 mmol/L (23-31); Chloride 109 mmol/L (98-107); Glucose 68 mg/dL (83-110); Lipase 53 U/L (8-78); Potassium 3.2 mmol/L (3.5-5.1); Sodium 139 mmol/L (136-145)
--- NOTE | 2020-04-09 09:58 | PDOC.DS.DS ---
Provider - Provider Date of Admission: 04/08/20 14:50 Date of Discharge: 04/09/20 Admitting Provider: Henry Egan MD Primary Care Physician: Curt Ridley MD Course - Hospital Course Hospital Course: Mr. Saini is a 80-year-old male with a past medical history of hypertension, hyperlipidemia, Alzheimer's disease, gout, GERD who lives at [facility] who was transferred to the emergency room for concern of low blood pressure. intermediate reported that blood pressure was in the 70s systolic, however when EMS arrived systolic blood pressure was in the 100s. Blood pressures have been normal since patient presented to the emergency room. Patient tested positive for Covid 1 week ago, but has not had any symptoms. Patient's respiratory status has been normal and he has been 98% on room air the entire time. Patient was admitted for overnight observation and no abnormalities other than mild hypokalemia was found. Patient is at his baseline mental status. His vital signs have been stable. WBC 6.5, UA negative. Patient did receive azithromycin, Lovenox, aspirin, ceftriaxone and Decadron while in the emergency room, however since patient has no oxygen requirement none of these were continued. Chest x-ray showed question of mild patchy opacities, however poor inspiratory effort. Patient has not had any respiratory symptoms, no cough no fever or congestion. White blood cell count was normal. This morning patient at baseline mental status with no obvious complaints. Is not in any distress and has normal heart and lung sounds. Patient's potassium was repleted orally. He is medically safe for discharge back to his shelter at this time. Case was discussed with attending physician, Dr. Yoder who is in agreement with assessment and plan and that patient is ready for discharge. Pertinent Studies: CXR: Findings: Lungs are hypoinflated. Heart size is enlarged. Concern for patchy peripheral airspace opacities. Impression: Commonly reported imaging findings of COVID-19 pneumonia. Resuscitation Status: 04/08/20 12:12 Resuscitation Status Routine Co-Sign Provider: Resuscitation Status: FULL: Full Resuscitation - Labs Lab Results: 04/09/20 08:04 04/09/20 08:04 Abnormal Lab Results - Last 48 hrs 04/08/20 09:55: Potassium 3.1 L, Alkaline Phosphatase 123 H, Albumin/Globulin Ratio 1.1 L, Lipase 102 H 04/08/20 09:55: Troponin I 0.029 H 04/08/20 09:55: RBC 4.60 L, Hct 41.9 L, MCH 31.2 H, Plt Count 107 L, MPV 10.5 H, Lymphocytes % 19.9 L, Plt Morphology Comment Appears Decreased L 04/08/20 09:55: D-Dimer 2.52 H 04/08/20 10:03: Urine Urobilinogen 3 A 04/08/20 13:31: C-Reactive Protein 1.85 H 04/08/20 13:31: Ferritin 768.36 H 04/09/20 08:04: Potassium 3.2 L, Chloride 109 H, Carbon Dioxide 19 L, Creatinine 0.66 L, Calcium 7.6 L 04/09/20 08:04: RBC 4.33 L, Hgb 13.4 L, Hct 39.2 L, Plt Count 110 L, MPV 10.5 H, Monocytes # 0.7 H Microbiology - Entire Visit 04/08/20 09:55 Venous blood - Left Arm Blood Culture - Preliminary Specimen has been received and culture in progress. No Growth to date. - Physical Exam Vitals: Vital Signs (12 hours) Temp Pulse Resp BP BP Pulse Ox 04/09/20 08:00 97.7 F 68 20 117/76 97 04/09/20 04:00 97.5 F L 73 20 138/95 H 04/08/20 23:54 97.6 F 72 20 135/69 97 Weight Admit Weight 163 lb Weight 163 lb Physical Exam: The patient was seen and examined on the day of discharge. Plan - Discharge Medications Home Medications: Medication Instructions Recorded Confirmed Type Acetaminophen [Tylenol Regular 650 mg PO Q4HR PRN 04/08/20 04/08/20 History Strength] Allopurinol 100 mg PO DAILY 04/08/20 04/08/20 History Ascorbic Acid [Vitamin C] 1,000 mg PO DAILY 04/08/20 04/08/20 History Atorvastatin Calcium [Lipitor] 20 mg PO DAILY 04/08/20 04/08/20 History Clindamycin HCl 300 mg PO Q6HR 04/08/20 04/08/20 History Famotidine [Pepcid] 20 mg PO BID 04/08/20 04/08/20 History Ferrous Sulfate [Iron] 325 mg PO BID 04/08/20 04/08/20 History Memantine HCl [Namenda] 10 mg PO BID 04/08/20 04/08/20 History Zinc Sulfate 220 mg PO DAILY 04/08/20 04/08/20 History Allergies: No Known Allergies Allergy (Verified 04/08/20 16:44) - Discharge Instructions Activity:: Activity as Tolerated Nourishment:: Heart Healthy Diet - Follow up Plan Referrals: Curt Ridley MD [Primary Care Provider] - 7 Days Disposition: [facility]ISON [facility]
[2020-04-09] MEDS ORDERED: Potassium Chloride 20 MEQ TAB PO SCH (10:00)
--- NOTE | 2020-04-09 10:22 | PDOC.HOSPP ---
- Subjective Encounter Date: 04/09/20 Encounter Time: 09:00 Subjective: 80-year-old male with past medical history of hypertension, hyperlipidemia, Alzheimer's disease who lives at [facility] brought to emergency room for concerns of hypotension. No overnight events. Patient non-verbal. Appears to be resting comfortably in bed in no distress. Blood pressures in normal range this morning. Chart and medications reviewed - Objective Vital Signs & Weight: Vital Signs (12 hours) Temp Pulse Resp BP BP Pulse Ox 04/09/20 08:00 97.7 F 68 20 117/76 97 04/09/20 04:00 97.5 F L 73 20 138/95 H 04/08/20 23:54 97.6 F 72 20 135/69 97 Weight Admit Weight 163 lb Weight 163 lb Result Diagrams: 04/09/20 08:04 04/09/20 08:04 Hospitalist ROS - Review of Systems ROS unobtainable: due to mental status - Medication Medications: Active Medications Generic Name Dose Route Start Last Admin Trade Name Tricia PRN Reason Stop Dose Admin Ascorbic Acid 1,000 mg 04/09/20 09:00 04/09/20 08:56 Ascorbic Acid 500 Mg Chewable Tablet PO 1,000 mg DAILY ANURAG Administration Cholecalciferol 1,000 units 04/09/20 09:00 04/09/20 08:56 Cholecalciferol 1,000 Units (25 Mcg) Tab PO 1,000 units DAILY ANURAG Administration Enoxaparin Sodium 40 mg 04/09/20 09:00 04/09/20 08:55 Enoxaparin Sodium 40 Mg/0.4 Ml Syringe SC 40 mg 0900 ANURAG Administration Potassium Phosphate 30 mmol/ 260 mls @ 43.333 mls/hr 04/09/20 07:45 04/09/20 10:12 Sodium Chloride IVPB 04/09/20 13:44 Not Given NOW ANURAG Pantoprazole Sodium 40 mg 04/09/20 09:00 04/09/20 08:56 Pantoprazole 40 Mg Tab PO 40 mg DAILY ANURAG Administration - Exam General Appearance: NAD Eye: PERRL, anicteric sclera ENT: normocephalic atraumatic, no oropharyngeal lesions, moist mucosa Neck: supple, symmetric, no JVD, no thyromegaly, no lymphadenopathy, no carotid bruit Heart: RRR, no murmur, no gallops, no rubs, normal peripheral pulses Respiratory: CTAB, no wheezes, no rales, no ronchi, normal chest expansion, no tachypnea, normal percussion Gastrointestinal: soft, non-tender, non-distended, normal bowel sounds, no palpable masses, no hepatomegaly, no splenomegaly, no bruit Extremities: no cyanosis, no clubbing, no edema Skin: normal turgor, no lesions, no rashes Neurological: no weakness, no focal deficits Musculoskeletal: normal tone, diffuse muscle atrophy Psychiatric: not oriented Psychiatric - other findings: Eyes open, alert but unable to answer any questions. Patient does mumble Hosp A/P - Plan Hypotension Patient initially sent from care home for concerns of hypotension. Patient has been normotensive with normal vital signs since arriving to the emergency room. Patient's blood pressures are in the 120s to 130s this a.m. Suspect patient may have been mildly dehydrated. Blood cultures did grow GBS in 1 out of 2 bottles. Suspect possible contaminant as patient has no white blood cell count or fever. Will cover with ceftriaxone however and continue to monitor patient. Plan Continue monitor blood pressures Start ceftriaxone Follow blood cultures Bacteremia Patient with positive blood cultures in 1 out of 2 bottles for GBS. Patient is afebrile with white blood cell count of 6.5 and normotensive. UA negative. Chest x-ray with mild patchy infiltrates consistent with very mild COVID-19. Low suspicion for true bacteremia, however will cover with ceftriaxone and continue to monitor. Plan Start ceftriaxone Continue to follow blood cultures Trend fever curve, WBC, lactic acid Hypokalemia Potassium 3.1 on admission. Will replete and continue to monitor. COVID-19 Patient tested positive for COVID-19 approximately 1 week ago. care home reports no symptoms. Patient is in no respiratory distress and maintaining O2 saturation at 98% on room air. Chest x-ray did show very mild groundglass opacities consistent with COVID-19. We will continue to monitor patient's respiratory status, but no treatment is indicated at this time. Hyperlipidemia Continue home statin Gout Continue home allopurinol GERD Continue home famotidine DVT prophylaxis - Lovenox FULL CODE Case discussed with attending physician Dr. Yoder.
[2020-04-09] MEDS: cefTRIAXone\\ROCEPHIN 1 GM in Sodium Chloride 0.9% 100 ML IVPB SCH (10:46)
[2020-04-09 11:23] LABS: Lactic Acid 1.5 mmol/L (0.5-2.2)
--- NOTE | 2020-04-09 11:57 | PDOC.EVN ---
Event Note - Event Note Event Note: Case was reviewed. Patient was seen and examined. He is significantly demented and essentially noncommunicative. He does verbalize but is unintelligible. His exam is generally benign otherwise. Heart was regular. Lungs were clear. Abdomen is soft nontender. Extremities without significant edema. This patient presented from the residential facility where he was noted to have hypoxia with O2 saturation in the 60s and hypotension with a blood pressure in the 70s systolic. On the arrival of EMS his vital signs appeared to be much more stable with an O2 sat of 98%. He has maintained normal oxygenation and basically normal blood pressures throughout his time here. He was felt to be stable for discharge however he has had a positive blood culture which is very likely a contaminant. Nonetheless given his initial presentation will let this play out to 48 hours on the cultures and confirm that this appears to be only a contaminant. It was noted that the patient did have a recent diagnosis of COVID-19 infection. His inflammatory markers remain relatively low.
[2020-04-09] MEDS: Zinc Sulfate 220 MG CAP PO SCH (13:46)
[2020-04-10 07:09] LABS: #Basophils 0.1 thou/uL (0.0-0.2); #Eosinphils 0.2 thou/uL (0.0-0.7); #Lymphocytes 1.9 thou/uL (1.20-3.40); #Monocytes 0.6 thou/uL (0.11-0.59); #Neutrophils 4.7 thou/uL (1.40-6.50); %Basophils 0.8 % (0.0-1.0); %Eosinophils 2.5 % (0.0-10.0); %Lymphocytes 25.9 % (21.0-51.0); %Monocytes 7.5 % (0.0-10.0); %Neutrophils 63.4 % (42.0-75.0); Mean Corpuscular HGB CONC 34.2 g/dL (32.0-36.0); Mean Corpuscular Hemoglobin 31.1 pg (27.0-31.0); Mean Corpuscular Volume 90.9 fL (78.0-98.0); Mean Platelet Volume 10.1 fL (7.4-10.4); Platelet Count 126 thou/uL (130-400); RBC Distribution Width 13.4 % (11.5-14.5); Red Blood Cell (RBC) Count 4.51 mill/uL (4.70-6.10); White Blood Cell (WBC) Count 7.4 thou/uL (4.8-10.8)
[2020-04-10 07:24] LABS: ALT (SGPT) 24 U/L (8-55); AST (SGOT) 19 U/L (5-34); Albumin 2.9 g/dL (3.4-4.8); Alkaline Phosphatase 105 U/L (40-110); Anion Gap 12 mmol/L (10-20); BUN (Urea Nitrogen) 6 mg/dL (8.4-25.7); Bilirubin, Total 0.8 mg/dL (0.2-1.2); Calc. Creatinine Clearance 83 mL/min (70-130); Calcium 7.9 mg/dL (7.8-10.44); Carbon Dioxide 27 mmol/L (23-31); Chloride 105 mmol/L (98-107); Globulin 3.4 g/dL (2.4-3.5); Glucose 76 mg/dL (83-110); Magnesium 1.9 mg/dL (1.6-2.6); Phosphorus 2.3 mg/dL (2.3-4.7); Potassium 3.4 mmol/L (3.5-5.1); Protein, Total 6.3 g/dL (5.8-8.1); Sodium 141 mmol/L (136-145)
[2020-04-10] MEDS: Zinc Sulfate 220 MG CAP PO SCH (08:27)
[2020-04-10] MEDS: Ascorbic Acid 500 mg Chewable Tablet PO SCH (08:27)
[2020-04-10] MEDS: Cholecalciferol 1,000 UNITS (25 MCG) TAB PO SCH (08:27)
[2020-04-10] MEDS: Enoxaparin Sodium 40 MG/0.4 ML SYRINGE SC SCH (08:28)
[2020-04-10] MEDS: cefTRIAXone\\ROCEPHIN 1 GM in Sodium Chloride 0.9% 100 ML IVPB SCH (11:34)
--- NOTE | 2020-04-10 17:16 | CON ---
DATE OF CONSULTATION: 04/10/2020 REASON FOR CONSULTATION: Bacteremia. HISTORY OF PRESENT ILLNESS: A 80-year-old patient with history of hyperlipidemia and Alzheimer disease, who is a resident of [facility], and was brought in because of hypotension, his initial BP was 89/64. He did not have a fever. He is saturating 96 on room air. He had a positive COVID test, so that prompted admission. He had some blood cultures, and 1/2 sets with group B Streptococcus identified. Currently, Mr. Wang is lying on his right lateral decubitus, is mumbling in unintelligible sounds. He does not follow commands. He establishes eye contact briefly. He has not had any diarrhea. No respiratory issues since admission. He is on room air O2. MEDICAL HISTORY: 1. Hyperlipidemia. 2. Alzheimer disease. ALLERGY HISTORY: Negative. MEDICATIONS: Current medications: 1. Ceftriaxone. 2. Enoxaparin. 3. Pantoprazole. 4. Ascorbic acid. At [facility], he is on: 1. Zinc. 2. Memantine. 3. Ferrous sulfate. 4. Pepcid. 5. Clindamycin for unclear indication. PHYSICAL EXAMINATION: VITAL SIGNS: Temperature has been normal since admission, BP 108/68, heart rate 63, saturating 96 on room air up to 100. SKIN: Without any significant findings except for there is a very shallow scabbed over ulceration in the medial aspect of the right first toe at the MPJ level. Peripheral IV access. He is voiding in the diaper. HEENT: Some element of conjunctival hyperemia. Pupils are equal. Oral cavity with still a few remaining teeth in place. Hard to evaluate his oral cavity because of lack of cooperation. NECK: No jugular vein distention. LUNGS: Symmetric air entry. No crackles or wheezing. HEART: S1 and S2. Regular rate without murmurs. No pacemaker. ABDOMEN: Soft, not distended or tender. No ascites. No bladder distention. EXTREMITIES: No joint inflammatory activity. No edema. Pulses 1+ in dorsalis pedis. Plantar responses are flexor. LABORATORY DATA: White cell count 6.5 and now 7.4, hemoglobin 14, and platelets 126. He has had normal differential since admission. Liver profile within normal limits. Albumin 2.9. Lipase 657. Urinalysis was essentially normal. The patient had a chest x-ray, which showed hyperinflated lungs, some patchy peripheral airspace opacities. ASSESSMENT: 1. Alzheimer disease. 2. COVID pneumonia of uncertain duration. If he is in the first week, there is a possibility of deterioration going further, so we will go ahead and check his antibody levels to help guide that assessment. 3. Regarding the group B strep, it could represent contamination of the sample rather than true bacteremia, although group B strep is a common organism in true bacteremia. Since we cannot interview the patient, I would probably around the side of treating as a true bacteremia with oral Keflex 4 times daily or amoxicillin 3 times daily, which can be given in a suspension form. Group B strep is a frequent colonizer of the skin, particularly below the waistline, can be associated with a variety of different processes including urinary tract infections, mostly cellulitis and skin and soft tissue infections can cause bacteremia with pneumonia and endocarditis is infrequent and a number of other problems and inability to interview the patient will be make it very difficult to identify the source and again this could represent contamination of the sample, but we will go ahead and treat him for one week with Keflex or amoxicillin. Job ID: [id number] [facility]
[2020-04-10] MEDS ORDERED: Lorazepam 2 MG/ML VIAL SLOW IVP PRN (18:39)
--- NOTE | 2020-04-10 19:51 | PDOC.HOSPP ---
- Subjective Encounter Date: 04/10/20 Encounter Time: 13:00 Subjective: Patient seen and examined for suspected sepsis. No new overnight events. - Objective Vital Signs & Weight: Vital Signs (12 hours) Pulse Ox 04/10/20 08:30 96 Weight Admit Weight 163 lb Weight 163 lb I&O: 04/09/20 04/10/20 04/11/20 06:59 06:59 06:59 Intake Total 740 Balance 740 Result Diagrams: 04/10/20 06:42 04/10/20 06:42 Additional Labs: Abnormal Lab Results - Last 48 hrs 04/09/20 08:04: Potassium 3.2 L, Chloride 109 H, Carbon Dioxide 19 L, Creatinine 0.66 L, Calcium 7.6 L 04/09/20 08:04: RBC 4.33 L, Hgb 13.4 L, Hct 39.2 L, Plt Count 110 L, MPV 10.5 H, Monocytes # 0.7 H 04/10/20 06:42: RBC 4.51 L, Hct 41.0 L, MCH 31.1 H, Plt Count 126 L, Monocytes # 0.6 H 04/10/20 06:42: Potassium 3.4 L, BUN 6 L, Albumin 2.9 L, Albumin/Globulin Ratio 0.9 L Microbiology - Entire Visit 04/08/20 09:55 Venous blood - Left Arm Blood Culture - Preliminary NO GROWTH AT 48 HOURS 04/08/20 10:43 Venous blood - Left Arm Blood Culture - Preliminary Streptococcus agalactiae Gp. B Radiology Reviewed by me: Yes (Chest x-rayno new changes) Hospitalist ROS - Review of Systems ROS unobtainable: due to mental status - Medication Medications: Active Medications Generic Name Dose Route Start Last Admin Trade Name Freq PRN Reason Stop Dose Admin Ascorbic Acid 1,000 mg 04/09/20 09:00 04/10/20 08:27 Ascorbic Acid 500 Mg Chewable Tablet PO 1,000 mg DAILY ANURAG Administration Cholecalciferol 1,000 units 04/09/20 09:00 04/10/20 08:27 Cholecalciferol 1,000 Units (25 Mcg) Tab PO 1,000 units DAILY ANURAG Administration Enoxaparin Sodium 40 mg 04/09/20 09:00 04/10/20 08:28 Enoxaparin Sodium 40 Mg/0.4 Ml Syringe SC 40 mg 0900 ANURAG Administration Ceftriaxone Sodium 1 gm/ 100 mls @ 200 mls/hr 04/09/20 11:00 04/10/20 11:34 Sodium Chloride IVPB 100 mls Q24HR ANURAG Administration Pantoprazole Sodium 40 mg 04/09/20 09:00 04/10/20 08:27 Pantoprazole 40 Mg Tab PO 40 mg DAILY ANURAG Administration Zinc Sulfate 220 mg 04/09/20 09:00 04/10/20 08:27 Zinc Sulfate 220 Mg Cap PO 220 mg DAILY ANURAG Administration - Exam General Appearance: ill appearing Heart: RRR, no gallops Respiratory: no wheezes, rhonchi Gastrointestinal: non-tender, non-distended Extremities: no cyanosis Neurological - other findings: Neuro/psychexam limited due to current mentation Hosp A/P - Plan DVT proph w/SCDs Please note that patient has 2 different medical records. He was discharged from this facility on 04/05 with a diagnosis of dehydration with COVID-19 pneumonia. Impression: Severe sepsis with hypotension and group B strep bacteremiaPOA Recent diagnosis of COVID-19 Advanced dementia Recent hospitalization for dehydration/cellulitis on clindamycin History of hyperlipidemia Hypokalemia Gout GERD Thrombocytopenia Moderate protein calorie malnutritionPOA Plan: Infectious disease consultation. Replace potassium. Continue IV ceftriaxone. Continue PPIs. Restart all the home medications. Continue COVID-19 isolation. Patient is saturating 96 200% on room air. There is no need for steroid for COVID-19. DC to [facility] once cleared by infectious disease
[2020-04-10] MEDS ORDERED: Acetaminophen 325 MG TAB PO PRN (19:56)
[2020-04-10] MEDS: Famotidine 20 MG TAB PO SCH (20:27)
[2020-04-11 07:26] VITALS: TEMP 97.8
[2020-04-11 07:29] VITALS: BP 131/71
[2020-04-11] MEDS: Enoxaparin Sodium 40 MG/0.4 ML SYRINGE SC SCH (07:55)
[2020-04-11] MEDS: Ascorbic Acid 500 mg Chewable Tablet PO SCH (07:56)
[2020-04-11] MEDS: Cholecalciferol 1,000 UNITS (25 MCG) TAB PO SCH (07:56)
[2020-04-11] MEDS: Famotidine 20 MG TAB PO SCH (07:56)
[2020-04-11] MEDS ORDERED: Potassium Bicarbonate/Cit Ac 20 MEQ TAB PO SCH (08:00)
[2020-04-11] MEDS ORDERED: Ferrous Sulfate 325 MG TAB PO SCH (08:00)
[2020-04-11] MEDS ORDERED: Saccharomyces boulardii 250 MG CAP PO SCH (09:00)
[2020-04-11] MEDS ORDERED: Zinc Sulfate 220 MG CAP PO SCH (09:00)
[2020-04-11] MEDS ORDERED: Allopurinol 100 MG TAB PO SCH (09:00)
[2020-04-11] MEDS: cefTRIAXone\\ROCEPHIN 1 GM in Sodium Chloride 0.9% 100 ML IVPB SCH (10:56)
[2020-04-11 19:02] LABS: SARS-CoV-2 IgG Ab Reactive (NonReactive); SARS-CoV-2 IgG Index 5.24 S/CO (< 1.40)
--- NOTE | 2020-04-11 20:21 | PDOC.DS.DS ---
Provider - Provider Date of Admission: 04/09/20 14:36 Date of Discharge: 04/11/20 Admitting Provider: Henry Egan MD Consultations: Infectious Disease Primary Care Physician: Curt Ridley MD Course - Hospital Course Hospital Course: Patient is a 80-year-old male with dementia with recent hospitalization presented to the emergency room with hypoxemia along with low blood pressure in 70s. Please refer to the history and physical for further details. The patient was admitted to the hospital with a diagnosis of hypotension with hypoxemia. His blood culture 1 of 2 was positive for group B streptococcus resistant to clindamycin. Please note that he was recently discharged on clindamycin for cellulitis. He was evaluated by infectious disease. Infectious disease recommended Keflex for another 10 days. Clindamycin has been disconti nued. His blood pressure has stabilized. He remains on room air. Final diagnosis: Severe sepsis with hypotension and group B strep bacteremiaPOA Recent diagnosis of COVID-19 Advanced dementia Recent hospitalization for dehydration/cellulitis on clindamycin History of hyperlipidemia Hypokalemia Gout GERD Thrombocytopenia Moderate protein calorie malnutrition Time coordinating the discharge of this patient was 36 minutes. Resuscitation Status: 04/08/20 12:12 Resuscitation Status Routine Co-Sign Provider: Resuscitation Status: FULL: Full Resuscitation - Labs Lab Results: 04/10/20 06:42 04/10/20 06:42 Abnormal Lab Results - Last 48 hrs 04/10/20 06:42: RBC 4.51 L, Hct 41.0 L, MCH 31.1 H, Plt Count 126 L, Monocytes # 0.6 H 04/10/20 06:42: Potassium 3.4 L, BUN 6 L, Albumin 2.9 L, Albumin/Globulin Ratio 0.9 L Microbiology - Entire Visit 04/08/20 10:43 Venous blood - Left Arm Blood Culture - Final Streptococcus agalactiae Gp. B 04/08/20 09:55 Venous blood - Left Arm Blood Culture - Preliminary NO GROWTH AT 48 HOURS - Physical Exam Vitals: Weight Admit Weight 163 lb Weight 163 lb Physical Exam: The patient was seen and examined on the day of discharge. Plan - Discharge Medications Prescriptions: Saccharomyces boulardii [Florastor] 250 mg PO DAILY #30 cap Cephalexin [Keflex] 500 mg PO Q6H #40 cap Home Medications: Medication Instructions Recorded Confirmed Type Allopurinol 100 mg PO DAILY 10/18/13 10/18/13 History Atorvastatin Calcium [Lipitor] 20 mg PO DAILY 10/18/13 10/18/13 History Memantine HCl [Namenda] 10 mg PO BID 10/18/13 10/18/13 History Acetaminophen [Tylenol Regular 650 mg PO Q4HR PRN 10/22/13 10/22/13 History Strength] Ferrous Sulfate [Iron] 325 mg PO BID-WM 10/22/13 10/22/13 History Ascorbic Acid [Vitamin C] 1,000 mg PO DAILY #14 tablet 04/05/20 Rx Famotidine [Pepcid] 20 mg PO BID #30 tab 04/05/20 Rx Zinc Sulfate 220 mg PO DAILY #14 tablet 04/05/20 Rx Acetaminophen [Tylenol Regular 650 mg PO Q4HR PRN 04/08/20 04/08/20 History Strength] Allopurinol 100 mg PO DAILY 04/08/20 04/08/20 History Ascorbic Acid [Vitamin C] 1,000 mg PO DAILY 04/08/20 04/08/20 History Atorvastatin Calcium [Lipitor] 20 mg PO DAILY 04/08/20 04/08/20 History Famotidine [Pepcid] 20 mg PO BID 04/08/20 04/08/20 History Ferrous Sulfate [Iron] 325 mg PO BID 04/08/20 04/08/20 History Memantine HCl [Namenda] 10 mg PO BID 04/08/20 04/08/20 History Zinc Sulfate 220 mg PO DAILY 04/08/20 04/08/20 History Cephalexin [Keflex] 500 mg PO Q6H #40 cap 04/11/20 Rx Saccharomyces boulardii [Florastor] 250 mg PO DAILY #30 cap 04/11/20 Rx Allergies: No Known Allergies Allergy (Verified 04/08/20 16:44) - Discharge Instructions Activity:: Activity as Tolerated Nourishment:: Heart Healthy Diet - Follow up Plan Referrals: Curt Ridley MD [Primary Care Provider] - 7 Days Disposition: HOME Quality - Care Measures CORE MEASURES:: N/A
[2020-04-11] MEDS ORDERED: Atorvastatin Calcium 20 MG TAB PO SCH (21:00)
== END 2020-04-11 16:03 | disposition home or self-care (01) | DRG 871 ==
LOC: ERS 09:23 → T4-A 14:50 → OBSVTOIN 04-09 14:36 → MERGE 04-09 14:36
PROVIDERS: ADMIT Internal Medicine; ATTEND Internal Medicine
PROC: 8E0ZXY6 Isolation (ICD-10-PCS; principal; 2020-04-09)
DX: A40.1 Sepsis due to streptococcus, group B (principal); U07.1 COVID-19; J12.82 Pneumonia due to coronavirus disease 2019; E44.0 Moderate protein-calorie malnutrition; G30.9 Alzheimer's disease, unspecified; F02.80 Dementia in other diseases classified elsewhere, unspecified severity, without behavioral disturbance, psychotic disturbance, mood disturbance, and anxiety; I10 Essential (primary) hypertension; E78.5 Hyperlipidemia, unspecified; E86.0 Dehydration; K21.9 Gastro-esophageal reflux disease without esophagitis; M10.9 Gout, unspecified; E87.6 Hypokalemia; D69.6 Thrombocytopenia, unspecified; Z68.26 Body mass index [BMI] 26.0-26.9, adult; R65.20 Severe sepsis without septic shock; I95.9 Hypotension, unspecified
CPT/HCPCS: 36415; 51701; 71045; 80048; 80053; 81003; 82533; 82550; 82553; 82728; 83605; 83690; 83735; 83880; 84100; 84484; 85025; 85379; 86140; 86769; 87040; 87077; 87149; 87186; 93005; 96365; 96366; 96367; 96372; 96375; G0378; J0456; J0696; J1100; J1650; J3490

== ENCOUNTER 2020-05-13 09:06 | Inpatient (IN) | payer MEDICARE, OTHER ==
[2020-05-13 09:25] LABS: #Basophils 0.1 thou/uL (0.0-0.2); #Eosinphils 0.2 thou/uL (0.0-0.7); #Lymphocytes 1.4 thou/uL (1.20-3.40); #Monocytes 0.5 thou/uL (0.11-0.59); #Neutrophils 6.1 thou/uL (1.40-6.50); %Eosinophils 1.9 % (0.0-10.0); %Lymphocytes 16.5 % (21.0-51.0); %Monocytes 6.4 % (0.0-10.0); %Neutrophils 74.3 % (42.0-75.0); Hemoglobin 12.3 g/dL (14.0-18.0); Mean Corpuscular HGB CONC 32.7 g/dL (32.0-36.0); Mean Corpuscular Hemoglobin 30.7 pg (27.0-31.0); Mean Corpuscular Volume 93.9 fL (78.0-98.0); Mean Platelet Volume 8.6 fL (7.4-10.4); Platelet Count 221 thou/uL (130-400); RBC Distribution Width 14.9 % (11.5-14.5); White Blood Cell (WBC) Count 8.3 thou/uL (4.8-10.8)
[2020-05-13 09:46] LABS: ALT (SGPT) 10 U/L (8-55); AST (SGOT) 15 U/L (5-34); Albumin 3.3 g/dL (3.4-4.8); Alkaline Phosphatase 105 U/L (40-110); Anion Gap 15 mmol/L (10-20); BUN (Urea Nitrogen) 7 mg/dL (8.4-25.7); Bilirubin, Total 0.6 mg/dL (0.2-1.2); Calc. Creatinine Clearance 0 mL/min (70-130); Calcium 8.7 mg/dL (7.8-10.44); Carbon Dioxide 22 mmol/L (23-31); Chloride 108 mmol/L (98-107); Globulin 3.3 g/dL (2.4-3.5); Glucose 126 mg/dL (83-110); Potassium 4.2 mmol/L (3.5-5.1); Protein, Total 6.6 g/dL (5.8-8.1); Sodium 141 mmol/L (136-145)
--- NOTE | 2020-05-13 11:24 | RAD ---
PORTABLE CHEST: HISTORY: Syncopal episode. COMPARISON: A 04/08/2020 exam. FINDINGS: Heart size is enlarged. There are chronic-appearing lung changes without focal infiltrates or signs of failure. IMPRESSION: Cardiomegaly. No acute findings. POS: OFF
--- NOTE | 2020-05-13 11:30 | CT ---
CT OF BRAIN PERFORMED WITHOUT CONTRAST ENHANCEMENT: HISTORY: Altered mental status. Patient unresponsive. COMPARISON: CT examination of 04/07/2019. FINDINGS: There is generalized ventricular and sulcal prominence consistent with moderate atrophy. There are n o signs of hemorrhage or mass effect. The mastoid air cells and visualized sinuses are clear. IMPRESSION: No acute intracranial abnormalities. POS: OFF
[2020-05-13] MEDS ORDERED: Acetaminophen 325 MG TAB PO PRN (12:03)
--- NOTE | 2020-05-13 12:21 | PDOC.HHP ---
Hospitalist HPI unresponsive History of Present Illness: Patient is a 80-year-old male with a PMH of advanced dementia, HLD, GERD, and gout who presents from a half-way after he was found unresponsive for a short time. Per report, nurse found patient at the dining room sitting on his wheelchair, slumped over and was unresponsive, the nurse was not able to palpate his pulse, CPR was done for about 5 minutes. On arrival of EMS, patient had pulse. Shortly after patient's mental status was at baseline. says patient has been doing well and no complain and currently he is at his baseline. No fall was reported. Patient was discharged from the hospital on 04/11/20 after he was admitted for Grp B strep bacteremia. ED Course: On arrival to the ED, patient was noted to have intermittent tachcyardia with HR jumping to 130's. Initial EKG showed SR with sinus arrhythmia Vent rate:87. Repeat EKG showed A fib with rvr, Vent rate: 119. CT head showed no acute intracranial abnormalities. Allergies/Adverse Reactions: Allergy/AdvReac Type Severity Reaction Status Date / Time No Known Drug Allergies Allergy Verified 04/12/20 08:29 Home Medications: Medication Instructions Recorded Confirmed Type Allopurinol 100 mg PO DAILY 10/18/13 10/18/13 History Atorvastatin Calcium [Lipitor] 20 mg PO DAILY 10/18/13 10/18/13 History Memantine HCl [Namenda] 10 mg PO BID 10/18/13 10/18/13 History Acetaminophen [Tylenol Regular 650 mg PO Q4HR PRN 10/22/13 10/22/13 History Strength] Ferrous Sulfate [Iron] 325 mg PO BID-WM 10/22/13 10/22/13 History Ascorbic Acid [Vitamin C] 1,000 mg PO DAILY #14 tablet 04/05/20 Rx Famotidine [Pepcid] 20 mg PO BID #30 tab 04/05/20 Rx Zinc Sulfate 220 mg PO DAILY #14 tablet 04/05/20 Rx Acetaminophen [Tylenol Regular 650 mg PO Q4HR PRN 04/08/20 04/08/20 History Strength] Allopurinol 100 mg PO DAILY 04/08/20 04/08/20 History Ascorbic Acid [Vitamin C] 1,000 mg PO DAILY 04/08/20 04/08/20 History Atorvastatin Calcium [Lipitor] 20 mg PO DAILY 04/08/20 04/08/20 History Famotidine [Pepcid] 20 mg PO BID 04/08/20 04/08/20 History Ferrous Sulfate [Iron] 325 mg PO BID 04/08/20 04/08/20 History Memantine HCl [Namenda] 10 mg PO BID 04/08/20 04/08/20 History Zinc Sulfate 220 mg PO DAILY 04/08/20 04/08/20 History Cephalexin [Keflex] 500 mg PO Q6H #40 cap 04/11/20 Rx Saccharomyces boulardii [Florastor] 250 mg PO DAILY #30 cap 04/11/20 Rx Past History: PMHx: advanced dementia, HLD, GERD, and gout PSHx: ?ankle and knee surgery when he was young FHx: Both parents had history of dementia Social: He is a former smoker. Per family he does not drink alcohol or uses drugs. Hospitalist HPI ROS ROS unobtainable: due to mental status Hospitalist Exam General Appearance: NAD, awake alert General - other findings: Does not answer questions, does not follow commands Eye: PERRL ENT: moist mucosa ENT - other findings: Hard to assess oropharynx well as patient was not cooperative Neck: supple, JVD Heart: RRR, no murmur Respiratory: CTAB, no tachypnea Gastrointestinal: soft, non-tender, non-distended, normal bowel sounds Extremities: 1+ LE edema (bilaterally) Skin - other findings: old ecchymosis around left eye Neurological - other findings: able to move all extremities, does not follow command Psychiatric - other findings: alert and oriened x0 Hospitalist Results Result Diagrams: 05/13/20 09:16 05/13/20 09:16 Lab results: Laboratory Last Values WBC 8.3 thou/uL (4.8-10.8) 05/13/20 09:16 RBC 4.00 mill/uL (4.70-6.10) L 05/13/20 09:16 Hgb 12.3 g/dL (14.0-18.0) L 05/13/20 09:16 Hct 37.6 % (42.0-52.0) L 05/13/20 09:16 MCV 93.9 fL (78.0-98.0) 05/13/20 09:16 MCH 30.7 pg (27.0-31.0) 05/13/20 09:16 MCHC 32.7 g/dL (32.0-36.0) 05/13/20 09:16 RDW 14.9 % (11.5-14.5) H 05/13/20 09:16 Plt Count 221 thou/uL (130-400) 05/13/20 09:16 MPV 8.6 fL (7.4-10.4) 05/13/20 09:16 Neutrophils % 74.3 % (42.0-75.0) 05/13/20 09:16 Lymphocytes % 16.5 % (21.0-51.0) L 05/13/20 09:16 Monocytes % 6.4 % (0.0-10.0) 05/13/20 09:16 Eosinophils % 1.9 % (0.0-10.0) 05/13/20 09:16 Basophils % 1.0 % (0.0-1.0) 05/13/20 09:16 Neutrophils # 6.1 thou/uL (1.40-6.50) 05/13/20 09:16 Lymphocytes # 1.4 thou/uL (1.20-3.40) 05/13/20 09:16 Monocytes # 0.5 thou/uL (0.11-0.59) 05/13/20 09:16 Eosinophils # 0.2 thou/uL (0.0-0.7) 05/13/20 09:16 Basophils # 0.1 thou/uL (0.0-0.2) 05/13/20 09:16 D-Dimer 1.38 *mcg/mL (0.27-0.43) H 05/13/20 11:55 Sodium 141 mmol/L (136-145) 05/13/20 09:16 Potassium 4.2 mmol/L (3.5-5.1) 05/13/20 09:16 Chloride 108 mmol/L (98-107) H 05/13/20 09:16 Carbon Dioxide 22 mmol/L (23-31) L 05/13/20 09:16 Anion Gap 15 mmol/L (10-20) 05/13/20 09:16 BUN 7 mg/dL (8.4-25.7) L 05/13/20 09:16 Creatinine 0.78 mg/dL (0.7-1.3) 05/13/20 09:16 Estimated GFR (MDRD) Greater than 90 05/13/20 09:16 Glucose 126 mg/dL (83-110) H 05/13/20 09:16 Calcium 8.7 mg/dL (7.8-10.44) 05/13/20 09:16 Total Bilirubin 0.6 mg/dL (0.2-1.2) 05/13/20 09:16 AST 15 U/L (5-34) 05/13/20 09:16 ALT 10 U/L (8-55) 05/13/20 09:16 Alkaline Phosphatase 105 U/L (40-110) 05/13/20 09:16 Troponin I 0.026 ng/mL (< 0.028) 05/13/20 09:16 Serum Total Protein 6.6 g/dL (5.8-8.1) 05/13/20 09:16 Albumin 3.3 g/dL (3.4-4.8) L 05/13/20 09:16 Globulin 3.3 g/dL (2.4-3.5) 05/13/20 09:16 Albumin/Globulin Ratio 1.0 g/dL (1.2-2.2) L 05/13/20 09:16 Chest x-ray Status: image reviewed by nv CT scan - head Status: image reviewed by nv Hospitalist H&P A/P (1) Atrial fibrillation, new onset Code(s): I48.91 - UNSPECIFIED ATRIAL FIBRILLATION Status: Acute Assessment and Plan: Patient presented after he had a syncopal episode. In the ED he was noted to have intermittent tachycardia, repeat EKG showed A. fib with RVR. He later became sinus spontaneously with intermittent tachcyardia. No previous history of A. fib. [id number]: 2. Plan: -Telemetry -TSH level -D-dimer level -Echo -low dose lopressor -low dose Eliquis given his age -cardiology consulted (2) Syncope Code(s): R55 - SYNCOPE AND COLLAPSE Status: Acute Assessment and Plan: Likely due to above. CT head showed no acute intracranial abnormalities. No apparent focal deficit on exam. Plan: -Telemetry -Orthostatic vitals -Echo as above (3) Dementia Code(s): F03.90 - UNSPECIFIED DEMENTIA WITHOUT BEHAVIORAL DISTURBANCE Status: Chronic Assessment and Plan: Advanced Plan: -cont home meds (4) HLD (hyperlipidemia) Code(s): E78.5 - HYPERLIPIDEMIA, UNSPECIFIED Status: Chronic Assessment and Plan: Plan: -cont home med Plan: Full code. Patient's Alfredo Saini would like patient to be Full code for now
[2020-05-13] MEDS ORDERED: Metoprolol Tartrate 25 MG TAB PO SCH (12:30)
[2020-05-13] MEDS ORDERED: Metoprolol Tartrate 25 MG TAB ONE (12:36)
[2020-05-13 14:04] LABS: Troponin I 0.028 ng/mL (< 0.028)
--- NOTE | 2020-05-13 15:23 | CON ---
DATE OF CONSULTATION: REASON FOR CONSULTATION: Recent syncope and atrial fibrillation. PRIMARY INVENTORY SPECIALIST: None. HISTORY OF PRESENT ILLNESS: Mr. Wang is a 80-year-old gentleman with advanced dementia, who recently was at goal at dementia unit where he became unresponsive. CPR was then started per . His pulse faint. EMS was summoned where they did regain his pulse and pressure. During my visit, he appears to be in no acute distress. He is fairly nonverbal, and the history was obtained from his . ALLERGIES: NONE. HOME MEDICATIONS: Include: 1. Allopurinol. 2. Ascorbic acid. 3. Atorvastatin. 4. Famotidine. 5. Ferrous sulfate. 6. Namenda. 7. Zinc. 8. Keflex. 9. Florastor. PAST SURGICAL HISTORY: Ankle surgery, knee surgery. SOCIAL HISTORY: Previous tobacco abuse. REVIEW OF SYSTEMS: Unobtainable. PHYSICAL EXAMINATION: GENERAL: He is not oriented to time, person, or place. VITAL SIGNS: Blood pressure 110/70, pulse 80s, respirations 20. NEUROLOGIC: The patient is alert. He is not oriented to time, person, or place. No focal neurologic deficits. HEENT: Sclerae without icterus. Mouth has moist mucous membranes with normal pallor. NECK: No JVD. Carotid upstroke brisk. No bruits bilaterally. LUNGS: Clear to auscultation with unlabored respirations. BACK: No scoliosis or kyphosis. CARDIAC: Irregularly irregular. ABDOMEN: Soft, nontender, nondistended. No peritoneal signs present. No hepatosplenomegaly. No abnormal striae. EXTREMITIES: 2+ femoral and 2+ dorsalis pedis pulses. No cyanosis, clubbing, or edema. SKIN: No gross abnormalities. PERTINENT LABORATORY DATA: Hemoglobin 12.3, hematocrit 37.6. Creatinine 0.78, albumin 3.3. Troponin negative. IMPRESSION: 1. Atrial fibrillation. 2. Syncope. 3. Advanced dementia. RECOMMENDATIONS: 1. Etiology to recent syncopal episode is unknown. The patient does appear to wax and wane between atrial fibrillation in sinus rhythm. He may have had a significant pause versus difficulty in feeling his actual pulse from having atrial fibrillation with rapid ventricular response. 2. At this point, recommend Multaq 400 mg p.o. b.i.d. This may help suppress his atrial dysrhythmias. We will recommend echo Doppler. 3. The would like to proceed with more conservative therapy. She was not interested in any heroic measures. She does not want intubation, cardioversion, or medications needed to keep his blood pressure up. No CPR. We will therefore make the patient DNR and DNI. Job ID: [id number]
[2020-05-13 16:25] LABS: Troponin I 0.018 ng/mL (< 0.028)
[2020-05-13] MEDS ORDERED: Dronedarone HCl 400 MG TAB PO SCH (17:00)
[2020-05-13 18:35] VITALS: BMI 25.7
[2020-05-13] MEDS: Metoprolol Tartrate 25 MG TAB PO SCH (21:35)
[2020-05-13] MEDS: Dronedarone HCl 400 MG TAB PO SCH (21:35)
[2020-05-13] MEDS: Apixaban 2.5 MG TAB PO SCH (21:35)
[2020-05-14] MEDS ORDERED: OLANZapine 2.5 MG TAB PO SCH (02:45)
[2020-05-14 04:39] LABS: #Basophils 0.1 thou/uL (0.0-0.2); #Eosinphils 0.2 thou/uL (0.0-0.7); #Lymphocytes 1.7 thou/uL (1.20-3.40); #Monocytes 0.6 thou/uL (0.11-0.59); #Neutrophils 4.6 thou/uL (1.40-6.50); %Basophils 1.4 % (0.0-1.0); %Eosinophils 2.6 % (0.0-10.0); %Lymphocytes 23.5 % (21.0-51.0); %Monocytes 8.5 % (0.0-10.0); %Neutrophils 64.1 % (42.0-75.0); Hemoglobin 10.9 g/dL (14.0-18.0); Mean Corpuscular Hemoglobin 30.7 pg (27.0-31.0); Mean Corpuscular Volume 92.9 fL (78.0-98.0); Mean Platelet Volume 8.5 fL (7.4-10.4); Platelet Count 207 thou/uL (130-400); Red Blood Cell (RBC) Count 3.56 mill/uL (4.70-6.10); White Blood Cell (WBC) Count 7.2 thou/uL (4.8-10.8)
[2020-05-14 04:58] LABS: Anion Gap 12 mmol/L (10-20); BUN (Urea Nitrogen) 9 mg/dL (8.4-25.7); Calc. Creatinine Clearance 76 mL/min (70-130); Calcium 8.2 mg/dL (7.8-10.44); Carbon Dioxide 24 mmol/L (23-31); Chloride 108 mmol/L (98-107); Glucose 88 mg/dL (83-110); Potassium 3.8 mmol/L (3.5-5.1); Sodium 140 mmol/L (136-145)
[2020-05-14] MEDS: Dronedarone HCl 400 MG TAB PO SCH ×2 (09:56→17:23)
[2020-05-14] MEDS: Metoprolol Tartrate 25 MG TAB PO SCH (09:56)
[2020-05-14] MEDS: Apixaban 2.5 MG TAB PO SCH (09:57)
--- NOTE | 2020-05-14 11:53 | PDOC.HOSPP ---
- Subjective Encounter Date: 05/14/20 Encounter Time: 11:49 Subjective: alert, demented - Objective Vital Signs & Weight: Vital Signs (12 hours) Temp Pulse Resp BP BP Pulse Ox 05/14/20 11:38 97.9 F 55 L 18 110/65 100 05/14/20 07:45 97.6 F 67 18 104/60 94 L 05/14/20 04:07 97.8 F 71 16 104/62 94 L 05/14/20 00:10 97.6 F 71 18 131/84 97 Weight Weight 155 lb 9.6 oz I&O: 05/13/20 05/14/20 05/15/20 06:59 06:59 06:59 Intake Total 240 Balance 240 Result Diagrams: 05/14/20 04:04 05/14/20 04:05 Hospitalist ROS - Medication Medications: Active Medications Generic Name Dose Route Start Last Admin Trade Name Freq PRN Reason Stop Dose Admin Apixaban 2.5 mg 05/13/20 21:00 05/14/20 09:57 Apixaban 2.5 Mg Tab PO 2.5 mg BID ANURAG Administration Dronedarone 400 mg 05/13/20 17:00 05/14/20 09:56 Dronedarone Hcl 400 Mg Tab PO 400 mg BID-WM ANURAG Administration Metoprolol Tartrate 12.5 mg 05/13/20 21:00 05/14/20 09:56 Metoprolol Tartrate 25 Mg Tab PO 12.5 mg Q12HR ANURAG Administration Hospitalist Exam Vitals: Vital Signs (12 hours) Temp Pulse Resp BP BP Pulse Ox 05/14/20 11:38 97.9 F 55 L 18 110/65 100 05/14/20 07:45 97.6 F 67 18 104/60 94 L 05/14/20 04:07 97.8 F 71 16 104/62 94 L 05/14/20 00:10 97.6 F 71 18 131/84 97 Weight Weight 155 lb 9.6 oz General Appearance: awake alert Neck: no JVD Heart: RRR, no murmur Respiratory: CTAB, normal chest expansion Gastrointestinal: soft, normal bowel sounds Extremities: no edema Hosp A/P (1) Atrial fibrillation, new onset Code(s): I48.91 - UNSPECIFIED ATRIAL FIBRILLATION Status: Acute (2) Syncope Code(s): R55 - SYNCOPE AND COLLAPSE Status: Acute Qualifiers: Encounter type: initial encounter (3) Dementia Code(s): F03.90 - UNSPECIFIED DEMENTIA WITHOUT BEHAVIORAL DISTURBANCE Status: Chronic Qualifiers: Dementia type: Alzheimer's (4) HLD (hyperlipidemia) Code(s): E78.5 - HYPERLIPIDEMIA, UNSPECIFIED Status: Chronic Qualifiers: Hyperlipidemia type: unspecified Qualified Code(s): E78.5 - Hyperlipidemia, unspecified - Plan now in RSR sinus paveronikaes present discussed with -MICHAEL ramirez-risk of falls discuss with cardiology
--- NOTE | 2020-05-14 13:42 | PRG ---
DATE OF SERVICE: 05/14/2020 SUBJECTIVE: No significant changes noted overnight. His rhythm appears more stable on telemetry monitoring after adding Multaq. Eliquis and beta antonette therapy have also been added. OBJECTIVE: VITAL SIGNS: Blood pressure 110/65, pulse LUNGS: Clear to auscultation. HEART: Regular rate and rhythm with extrasystolic beats. ABDOMEN: Soft, nontender, nondistended. PERTINENT LABORATORY DATA: Hemoglobin 10.9, hematocrit 33.1. IMPRESSION: 1. Syncope. 2. Paroxysmal atrial fibrillation. RECOMMENDATIONS: Mr. Saini appears to stabilize on Multaq. We will continue current dose. I did discuss proceeding with event recorder, but given his advanced dementia, is likely not a good candidate. Also, discussed implantable loop recorder, but my is not interested and I would certainly agree. At this point, will be okay to return to the nursing facility. I did discuss outpatient followup followed up by primary care provider. Otherwise, I have no further recommendations. Job ID: [id number]
--- NOTE | 2020-05-14 15:59 | PDOC.BPN ---
- Brief Progress Note Encounter Date: 05/14/20 Encounter Time: 15:58 discussed with cardiology. DC metoprolol, will start ASA in place of eliquis
[2020-05-14] MEDS ORDERED: Melatonin 3 MG TAB PO PRN (19:09)
[2020-05-14] MEDS ORDERED: Atorvastatin Calcium 20 MG TAB PO SCH (21:00)
[2020-05-15 05:01] LABS: #Basophils 0.1 thou/uL (0.0-0.2); #Eosinphils 0.2 thou/uL (0.0-0.7); #Lymphocytes 1.7 thou/uL (1.20-3.40); #Monocytes 0.6 thou/uL (0.11-0.59); #Neutrophils 3.9 thou/uL (1.40-6.50); %Basophils 0.9 % (0.0-1.0); %Eosinophils 3.1 % (0.0-10.0); %Lymphocytes 26.4 % (21.0-51.0); %Monocytes 8.6 % (0.0-10.0); Hemoglobin 11.2 g/dL (14.0-18.0); Mean Corpuscular HGB CONC 31.7 g/dL (32.0-36.0); Mean Corpuscular Hemoglobin 29.7 pg (27.0-31.0); Mean Corpuscular Volume 93.7 fL (78.0-98.0); Mean Platelet Volume 8.9 fL (7.4-10.4); Platelet Count 199 thou/uL (130-400); Red Blood Cell (RBC) Count 3.75 mill/uL (4.70-6.10); White Blood Cell (WBC) Count 6.4 thou/uL (4.8-10.8)
[2020-05-15 05:17] LABS: Anion Gap 12 mmol/L (10-20); BUN (Urea Nitrogen) 8 mg/dL (8.4-25.7); Calc. Creatinine Clearance 77 mL/min (70-130); Calcium 8.6 mg/dL (7.8-10.44); Carbon Dioxide 25 mmol/L (23-31); Chloride 106 mmol/L (98-107); Glucose 86 mg/dL (83-110); Potassium 3.9 mmol/L (3.5-5.1); Sodium 139 mmol/L (136-145)
--- NOTE | 2020-05-15 08:03 | DIS ---
DATE OF ADMISSION: 05/13/2020 DATE OF DISCHARGE: 05/15/2020 PRIMARY CARE PROVIDER: Beni Parra MD Discharged to [facility]. DISCHARGE DIAGNOSES: Atrial fibrillation, rapid ventricular response, syncope, Alzheimer dementia, dyslipidemia, and gout. DISCHARGE MEDICATIONS: New: 1. Aspirin 325 mg a day. 2. Multaq 400 mg p.o. b.i.d. Old medications: 1. Allopurinol 100 mg a day. 2. Lipitor 20 mg a day. 3. Namenda 10 mg twice a day. 4. Florastor 250 mg a day. 5. Ibuprofen 400 mg p.o. q.4 hours p.r.n. pain. 6. Omeprazole 40 mg a day. 7. Seroquel 50 mg p.o. b.i.d. 8. Melatonin 10 mg at bedtime. ALLERGIES: NO KNOWN DRUG ALLERGIES. CODE STATUS: DNAR. PENDING AT THE TIME OF DISCHARGE: Nothing. DIET: As tolerated. HOSPITAL COURSE: Admitted to the [facility] Hospitalist Service with history of syncope and rapid atrial fibrillation. CONSULTATIONS: Dr. Solo Monahan, Cardiology. HOSPITAL COURSE: The patient admitted to the hospital after slumping over being noted to have rapid heartbeats, he was started on Lopressor and Eliquis at the emergency room. His admitting studies; brain CT, no acute intracranial process. CBC; hemoglobin 12.3, white count 8.3, and platelet count 221,000. D-dimer was elevated at 1.38. His electrolytes; sodium 141, potassium 4.2, chloride 108, CO2 of 22, BUN 7, creatinine 0.78. Liver function tests normal. Cardiac enzymes normal. TSH normal. The patient was transitioned to Multaq, Eliquis was discontinued due to risk of falls. Aspirin started. The patient's basic rhythm is sinus. He has a few minor pauses. He has had some nonsustained ventricular tachycardia. He will be continued on the Multaq after discussion with his . He is being transferred back to [facility] today. He will be followed up there by Dr. Parra and was recommended to be seen in 3 to 7 days. Job ID: [id number]
[2020-05-15] MEDS ORDERED: Aspirin 325 MG TAB PO SCH (09:00)
[2020-05-15] MEDS ORDERED: Saccharomyces boulardii 250 MG CAP PO SCH (09:00)
[2020-05-15] MEDS ORDERED: Allopurinol 100 MG TAB PO SCH (09:00)
[2020-05-15] MEDS: Dronedarone HCl 400 MG TAB PO SCH (09:04)
[2020-05-15 11:56] VITALS: BP 106/67; TEMP 97.6
== END 2020-05-15 13:48 | DRG 310 ==
LOC: ERS 09:06 → ERHOLD 11:52 → 2NO 17:15 → OBSVTOIN 05-15 09:30
PROVIDERS: ADMIT Internal Medicine; ATTEND Internal Medicine
DX: I48.0 Paroxysmal atrial fibrillation (principal); E78.5 Hyperlipidemia, unspecified; K21.9 Gastro-esophageal reflux disease without esophagitis; R55 Syncope and collapse; M10.9 Gout, unspecified; G30.9 Alzheimer's disease, unspecified; F02.80 Dementia in other diseases classified elsewhere, unspecified severity, without behavioral disturbance, psychotic disturbance, mood disturbance, and anxiety; I47.2 Ventricular tachycardia; Z87.891 Personal history of nicotine dependence
CPT/HCPCS: 36415; 70450; 71045; 80048; 80053; 83735; 84443; 84484; 85025; 85379; 93005; 93306; G0378

== ENCOUNTER 2020-05-16 18:05 | Emergency (ER) | payer MEDICARE, OTHER ==
--- NOTE | 2020-05-16 18:54 | RAD ---
Chest AP view INDICATION: Fall COMPARISON: May 13, 2020 FINDINGS: Lungs: The lungs are clear Cardiac silhouette: The cardiomediastinal silhouette appears within normal limits. Pulmonary vasculature: Low lung volumes accentuate the pulmonary vasculature. Pleural spaces: No pleural effusion or pneumothorax is demonstrated. Upper abdomen: No abnormality seen. Osseous structures: No acute osseous abnormality. Additional findings: None. IMPRESSION: No acute cardiopulmonary abnormality.
--- NOTE | 2020-05-16 19:08 | CT ---
CT Brain WO Con: 05/16/2020 6:50 PM CLINICAL HISTORY: Fall. IMAGING TECHNIQUE: Multiple CT images were obtained of the brain without IV contrast. COMPARISON: May 13, 2020 FINDINGS: BRAIN: Evidence of acute infarct: None. Evidence of chronic ischemic change:Stable mild to moderate chronic small vessel white matter ischemi c change. Evidence of intracranial hemorrhage: None. Evidence of brain volume loss:Stable diffuse atrophy Evidence of midline shift: Third ventricle and septum pellucidum are midline. Ventricles: Normal. No hydrocephalus. SKULL: There is left frontal scalp and left periorbital soft tissue swelling. No displaced skull fra cture or visualized facial fracture is evident. VISUALIZED PARANASAL SINUSES: Clear. MASTOID AIR CELLS: Clear. EXTRACRANIAL SOFT TISSUES: Normal. IMPRESSION: No acute intracranial abnormality.
--- NOTE | 2020-05-16 19:12 | CT ---
CT OF THE CERVICAL SPINE WITHOUT CONTRAST: 05/16/20 COMPARISON: 04/07/19 HISTORY: Tripped over rake and fell and hit head with forehead laceration and neck pain. TECHNIQUE: Multiple contiguous axial images were obtained in a CT of the cervical spine without contrast. Sagitt al and coronal reformats were performed. There is stable moderate degenerative changes of the cervical spine with intervertebral disc space na rrowing and osteophyte formation. The vertebral bodies demonstrate normal height without acute fractu re or subluxation. No prevertebral soft tissue swelling is seen. The posterior facets are well aligned. Normal alignment of the skull base with the cervical spine is seen. Nuchal calcifications are seen posteriorly. Emphysematous changes are seen in the lung apices. Calcifications are seen in the carotid arteries. IMPRESSION: Degenerative changes of the cervical spine without acute osseous abnormality. POS: EAA
== END 2020-05-16 23:14 ==
LOC: ERS 18:05
DX: S01.112A Laceration without foreign body of left eyelid and periocular area, initial encounter (principal); E78.00 Pure hypercholesterolemia, unspecified; M10.9 Gout, unspecified; F03.90 Unspecified dementia, unspecified severity, without behavioral disturbance, psychotic disturbance, mood disturbance, and anxiety; Z87.891 Personal history of nicotine dependence; W01.0XXA Fall on same level from slipping, tripping and stumbling without subsequent striking against object, initial encounter; Z79.899 Other long term (current) drug therapy
CPT/HCPCS: 12011; 70450; 71045; 72125; 93005; 94760

== ENCOUNTER 2020-08-19 10:52 | Emergency (ER) | payer MEDICARE, OTHER ==
[2020-08-19 11:24] LABS: #Basophils 0.1 thou/uL (0.0-0.2); #Eosinphils 0.1 thou/uL (0.0-0.7); #Lymphocytes 1.8 thou/uL (1.20-3.40); #Monocytes 0.9 thou/uL (0.11-0.59); #Neutrophils 8.2 thou/uL (1.40-6.50); %Basophils 0.5 % (0.0-1.0); %Eosinophils 1.3 % (0.0-10.0); %Lymphocytes 16.4 % (21.0-51.0); %Monocytes 8.2 % (0.0-10.0); %Neutrophils 73.7 % (42.0-75.0); Hemoglobin 14.6 g/dL (14.0-18.0); Mean Corpuscular Hemoglobin 30.1 pg (27.0-31.0); Mean Corpuscular Volume 91.2 fL (78.0-98.0); Mean Platelet Volume 8.2 fL (7.4-10.4); Platelet Count 248 thou/uL (130-400); RBC Distribution Width 13.5 % (11.5-14.5); Red Blood Cell (RBC) Count 4.84 mill/uL (4.70-6.10); White Blood Cell (WBC) Count 11.1 thou/uL (4.8-10.8)
[2020-08-19] MEDS ORDERED: Ondansetron PF 4 MG/2 ML Vial ONE ×2 (11:37→11:39)
[2020-08-19 11:48] LABS: ALT (SGPT) 14 U/L (8-55); AST (SGOT) 14 U/L (5-34); Albumin 3.8 g/dL (3.4-4.8); Alkaline Phosphatase 124 U/L (40-110); Anion Gap 14 mmol/L (10-20); BUN (Urea Nitrogen) 9 mg/dL (8.4-25.7); Bilirubin, Total 0.6 mg/dL (0.2-1.2); CK (CPK) 124 U/L (30-200); Calc. Creatinine Clearance 0 mL/min (70-130); Calcium 9.2 mg/dL (7.8-10.44); Carbon Dioxide 26 mmol/L (23-31); Chloride 105 mmol/L (98-107); Globulin 3.5 g/dL (2.4-3.5); Glucose 121 mg/dL (83-110); Lipase 16 U/L (8-78); Potassium 3.7 mmol/L (3.5-5.1); Protein, Total 7.3 g/dL (5.8-8.1); Sodium 141 mmol/L (136-145)
== END 2020-08-19 13:15 | disposition home or self-care (01) ==
LOC: ERS 10:52
DX: E86.0 Dehydration (principal); M10.9 Gout, unspecified; R11.10 Vomiting, unspecified; F03.90 Unspecified dementia, unspecified severity, without behavioral disturbance, psychotic disturbance, mood disturbance, and anxiety; E78.00 Pure hypercholesterolemia, unspecified; Z87.891 Personal history of nicotine dependence; Z79.82 Long term (current) use of aspirin; Z79.899 Other long term (current) drug therapy
CPT/HCPCS: 70450; 80053; 82550; 83690; 84484; 85025; 93005; 96374; J2405

== ENCOUNTER 2020-08-20 12:35 | Observation (INO) | payer MEDICARE, OTHER ==
[2020-08-20 13:09] LABS: #Eosinphils 0.1 thou/uL (0.0-0.7); #Lymphocytes 1.3 thou/uL (1.20-3.40); #Monocytes 0.7 thou/uL (0.11-0.59); #Neutrophils 9.6 thou/uL (1.40-6.50); %Basophils 0.4 % (0.0-1.0); %Eosinophils 0.8 % (0.0-10.0); %Lymphocytes 11.3 % (21.0-51.0); %Monocytes 6.1 % (0.0-10.0); %Neutrophils 81.3 % (42.0-75.0); Hemoglobin 14.4 g/dL (14.0-18.0); Mean Corpuscular Volume 90.8 fL (78.0-98.0); Mean Platelet Volume 8.3 fL (7.4-10.4); Platelet Count 234 thou/uL (130-400); RBC Distribution Width 13.7 % (11.5-14.5); Red Blood Cell (RBC) Count 4.79 mill/uL (4.70-6.10); White Blood Cell (WBC) Count 11.8 thou/uL (4.8-10.8)
[2020-08-20 13:33] LABS: ALT (SGPT) 14 U/L (8-55); AST (SGOT) 14 U/L (5-34); Albumin 3.9 g/dL (3.4-4.8); Alkaline Phosphatase 128 U/L (40-110); Anion Gap 18 mmol/L (10-20); BUN (Urea Nitrogen) 13 mg/dL (8.4-25.7); Bilirubin, Total 0.9 mg/dL (0.2-1.2); CK (CPK) 153 U/L (30-200); Calc. Creatinine Clearance 0 mL/min (70-130); Calcium 9.3 mg/dL (7.8-10.44); Carbon Dioxide 21 mmol/L (23-31); Chloride 105 mmol/L (98-107); Globulin 3.5 g/dL (2.4-3.5); Glucose 140 mg/dL (83-110); Lipase 12 U/L (8-78); Potassium 4.1 mmol/L (3.5-5.1); Protein, Total 7.4 g/dL (5.8-8.1); Sodium 140 mmol/L (136-145)
[2020-08-20] MEDS ORDERED: Acetaminophen 650 MG Suppository PR PRN (15:58)
[2020-08-20] MEDS ORDERED: Ondansetron ODT 4 MG TAB PO PRN ×2 (15:58→20:33)
[2020-08-20] MEDS ORDERED: Ondansetron PF 4 MG/2 ML Vial IVP PRN (15:58)
[2020-08-20] MEDS ORDERED: Acetaminophen 325 MG TAB PO PRN (15:58)
[2020-08-20 16:35] LABS: Troponin I Less than 0.010 ng/mL (< 0.028)
[2020-08-20 17:22] VITALS: BMI 26.9
[2020-08-20 20:08] LABS: Troponin I Less than 0.010 ng/mL (< 0.028)
[2020-08-20 20:12] LABS: SARS-CoV-2 NAA Rapid Test Not Detected (NotDetected)
[2020-08-20] MEDS ORDERED: Acetaminophen 500 MG TAB PO PRN (20:33)
[2020-08-20] MEDS ORDERED: Melatonin 3 MG TAB PO SCH (21:00)
[2020-08-21 05:06] LABS: #Eosinphils 0.2 thou/uL (0.0-0.7); #Lymphocytes 1.5 thou/uL (1.20-3.40); #Monocytes 0.8 thou/uL (0.11-0.59); #Neutrophils 5.7 thou/uL (1.40-6.50); %Basophils 0.4 % (0.0-1.0); %Eosinophils 2.4 % (0.0-10.0); %Lymphocytes 17.9 % (21.0-51.0); %Monocytes 9.5 % (0.0-10.0); %Neutrophils 69.7 % (42.0-75.0); Hemoglobin 11.9 g/dL (14.0-18.0); Mean Corpuscular HGB CONC 34.3 g/dL (32.0-36.0); Mean Corpuscular Volume 90.5 fL (78.0-98.0); Mean Platelet Volume 8.7 fL (7.4-10.4); Platelet Count 189 thou/uL (130-400); RBC Distribution Width 13.6 % (11.5-14.5); Red Blood Cell (RBC) Count 3.83 mill/uL (4.70-6.10); White Blood Cell (WBC) Count 8.2 thou/uL (4.8-10.8)
[2020-08-21 05:29] LABS: Anion Gap 10 mmol/L (10-20); BUN (Urea Nitrogen) 13 mg/dL (8.4-25.7); Calc. Creatinine Clearance 74 mL/min (70-130); Calcium 8.5 mg/dL (7.8-10.44); Carbon Dioxide 24 mmol/L (23-31); Chloride 109 mmol/L (98-107); Glucose 84 mg/dL (83-110); Potassium 3.8 mmol/L (3.5-5.1); Sodium 139 mmol/L (136-145)
[2020-08-21] MEDS ORDERED: Saccharomyces boulardii 250 MG CAP PO SCH (09:00)
[2020-08-21] MEDS ORDERED: Amiodarone 200 MG TAB PO SCH ×2 (09:00)
[2020-08-21] MEDS ORDERED: Atorvastatin Calcium 20 MG TAB PO SCH (09:00)
[2020-08-21] MEDS ORDERED: Allopurinol 100 MG TAB PO SCH (09:00)
[2020-08-21] MEDS ORDERED: Non-Formulary Item 1 EACH (Omeprazole [Omeprazole] 40 MG Capsule.Dr) PO SCH (09:00)
[2020-08-21 10:08] LABS: Bilirubin Negative (Negative); Blood, Urine Trace (Negative); Clarity Turbid (Clear); Glucose, Urine (Dipstick) Normal (Negative); Ketone, Urine Negative (Negative); Leukocyte 500 Leu/uL (Negative); Nitrite Negative (Negative); Protein, Urine (Dipstick) Negative (Neg-Trace); RBC/HPF 0-3 HPF (0-3); Specific Gravity, Urine 1.017 (1.002-1.036); Squamous Epithelial None Seen HPF (0-3); Urobilinogen Normal mg/dL (Less than 2); WBC/HPF Greater than 50 HPF (0-3); pH, Urine 5.5 (5.0-9.0)
[2020-08-21 10:10] LABS: Bacteria/HPF 3+ HPF (None Seen)
[2020-08-21 10:12] LABS: Urine Culture Reflex Yes Yes
[2020-08-21 14:27] VITALS: TEMP 98.2
[2020-08-21 18:18] VITALS: BP 142/70
== END 2020-08-21 19:55 ==
LOC: ERS 12:35 → 2NO 15:20 → INTOOBSV 15:20
PROVIDERS: ADMIT Internal Medicine; ATTEND Internal Medicine
DX: R55 Syncope and collapse (principal); G30.9 Alzheimer's disease, unspecified; F02.80 Dementia in other diseases classified elsewhere, unspecified severity, without behavioral disturbance, psychotic disturbance, mood disturbance, and anxiety; I48.91 Unspecified atrial fibrillation; E78.5 Hyperlipidemia, unspecified; K21.9 Gastro-esophageal reflux disease without esophagitis; I10 Essential (primary) hypertension; M10.9 Gout, unspecified; N17.9 Acute kidney failure, unspecified; D72.829 Elevated white blood cell count, unspecified; Z79.899 Other long term (current) drug therapy; Z20.822 Contact with and (suspected) exposure to COVID-19
CPT/HCPCS: 71045; 76770; 80048; 81001; 82550; 83690; 83735; 83880; 84146; 84484 ×2; 85025; 85379; 87086; 93005; 93880; 97139; 97530; 99285; G0378 ×3; U0002; U0005; 36415; 80053; 84443

== ENCOUNTER 2020-09-16 11:46 | Inpatient (IN) | payer MEDICARE, OTHER ==
[~2020-09-16 11:46] MED LIST: Iopamidol-370 76% 500 ML 1 ML ONE
[2020-09-16 13:52] LABS: #Basophils 0.1 thou/uL (0.0-0.2); #Eosinphils 0.1 thou/uL (0.0-0.7); #Lymphocytes 1.8 thou/uL (1.20-3.40); #Monocytes 0.8 thou/uL (0.11-0.59); #Neutrophils 4.5 thou/uL (1.40-6.50); %Basophils 0.8 % (0.0-1.0); %Eosinophils 0.9 % (0.0-10.0); %Lymphocytes 25.4 % (21.0-51.0); %Monocytes 10.5 % (0.0-10.0); %Neutrophils 62.4 % (42.0-75.0); Hemoglobin 13.3 g/dL (14.0-18.0); Mean Corpuscular HGB CONC 33.8 g/dL (32.0-36.0); Mean Corpuscular Hemoglobin 31.1 pg (27.0-31.0); Mean Corpuscular Volume 91.9 fL (78.0-98.0); Platelet Count 208 thou/uL (130-400); RBC Distribution Width 14.2 % (11.5-14.5); Red Blood Cell (RBC) Count 4.28 mill/uL (4.70-6.10); White Blood Cell (WBC) Count 7.2 thou/uL (4.8-10.8)
[2020-09-16 14:00] LABS: SARS-CoV-2 NAA Rapid Test Not Detected (NotDetected)
[2020-09-16 14:03] LABS: PTT 27.7 sec (22.9-36.1); Prothrombin Time 13.5 sec (12.0-14.7)
[2020-09-16 14:06] LABS: ALT (SGPT) 14 U/L (8-55); AST (SGOT) 16 U/L (5-34); Albumin 3.8 g/dL (3.4-4.8); Alkaline Phosphatase 124 U/L (40-110); Anion Gap 17 mmol/L (10-20); BUN (Urea Nitrogen) 14 mg/dL (8.4-25.7); Bilirubin, Total 0.8 mg/dL (0.2-1.2); CK (CPK) 135 U/L (30-200); Calc. Creatinine Clearance 0 mL/min (70-130); Calcium 8.7 mg/dL (7.8-10.44); Carbon Dioxide 21 mmol/L (23-31); Chloride 106 mmol/L (98-107); Globulin 2.9 g/dL (2.4-3.5); Glucose 126 mg/dL (83-110); Lipase 15 U/L (8-78); Magnesium 2.1 mg/dL (1.6-2.6); Potassium 4.4 mmol/L (3.5-5.1); Protein, Total 6.7 g/dL (5.8-8.1); Sodium 140 mmol/L (136-145)
[2020-09-16] MEDS ORDERED: Vancomycin 1 GM/200 ML BAG ONE (14:55)
[2020-09-16] MEDS ORDERED: Cefepime 2 GM VIAL ONE (14:55)
[2020-09-16 15:32] LABS: Bilirubin Negative (Negative); Blood, Urine Trace (Negative); Clarity Turbid (Clear); Glucose, Urine (Dipstick) Normal (Negative); Ketone, Urine Negative (Negative); Leukocyte 500 Leu/uL (Negative); Nitrite Negative (Negative); Protein, Urine (Dipstick) 10 mg/dL (Neg-Trace); RBC/HPF 0-3 HPF (0-3); Specific Gravity, Urine 1.018 (1.002-1.036); Squamous Epithelial 0-3 HPF (0-3); WBC/HPF 21-50 HPF (0-3)
[2020-09-16 15:39] LABS: Bacteria/HPF 4+ HPF (None Seen)
[2020-09-16 17:30] LABS: Lactic Acid 2.2 mmol/L (0.5-2.2)
[2020-09-16] MEDS ORDERED: Acetaminophen 500 MG TAB PO PRN (18:00)
[2020-09-16] MEDS ORDERED: Ondansetron PF 4 MG/2 ML Vial IVP PRN (18:00)
[2020-09-16] MEDS ORDERED: Ondansetron ODT 4 MG TAB PO PRN (18:00)
[2020-09-16] MEDS: Sodium Chloride 0.9% 1,000 ML IV SCH (18:32)
[2020-09-16] MEDS: Melatonin 3 MG TAB PO PRN (21:48)
[2020-09-16] MEDS: Famotidine 20 MG TAB PO SCH (21:49)
[2020-09-16] MEDS: cefTRIAXone\\ROCEPHIN 2 GM in Sodium Chloride 0.9% 100 ML IVPB SCH (21:49)
[2020-09-16 23:21] VITALS: BMI 27.2
[2020-09-17 05:05] LABS: #Eosinphils 0.1 thou/uL (0.0-0.7); #Lymphocytes 1.2 thou/uL (1.20-3.40); #Monocytes 0.7 thou/uL (0.11-0.59); %Basophils 0.8 % (0.0-1.0); %Eosinophils 1.8 % (0.0-10.0); %Lymphocytes 19.6 % (21.0-51.0); %Monocytes 11.4 % (0.0-10.0); %Neutrophils 66.4 % (42.0-75.0); Hemoglobin 11.4 g/dL (14.0-18.0); Mean Corpuscular Hemoglobin 31.1 pg (27.0-31.0); Mean Corpuscular Volume 91.6 fL (78.0-98.0); Mean Platelet Volume 8.8 fL (7.4-10.4); Platelet Count 174 thou/uL (130-400); RBC Distribution Width 14.2 % (11.5-14.5); Red Blood Cell (RBC) Count 3.65 mill/uL (4.70-6.10)
[2020-09-17 05:33] LABS: Anion Gap 12 mmol/L (10-20); BUN (Urea Nitrogen) 10 mg/dL (8.4-25.7); Calc. Creatinine Clearance 79 mL/min (70-130); Calcium 8.2 mg/dL (7.8-10.44); Carbon Dioxide 19 mmol/L (23-31); Chloride 112 mmol/L (98-107); Glucose 87 mg/dL (83-110); Potassium 3.4 mmol/L (3.5-5.1); Sodium 140 mmol/L (136-145)
[2020-09-17] MEDS: Sodium Chloride 0.9% 1,000 ML IV SCH ×2 (08:18→23:17)
[2020-09-17] MEDS: Amiodarone 200 MG TAB PO SCH (08:18)
[2020-09-17] MEDS: Famotidine 20 MG TAB PO SCH ×2 (08:18→22:04)
[2020-09-17] MEDS: Saccharomyces boulardii 250 MG CAP PO SCH (08:19)
[2020-09-17] MEDS ORDERED: Potassium Chloride 20 MEQ TAB PO SCH (08:45)
[2020-09-17] MEDS: Melatonin 3 MG TAB PO PRN (22:04)
[2020-09-17] MEDS: cefTRIAXone\\ROCEPHIN 2 GM in Sodium Chloride 0.9% 100 ML IVPB SCH (22:05)
[2020-09-18 07:54] LABS: #Eosinphils 0.2 thou/uL (0.0-0.7); #Lymphocytes 1.3 thou/uL (1.20-3.40); #Monocytes 0.5 thou/uL (0.11-0.59); #Neutrophils 3.6 thou/uL (1.40-6.50); %Basophils 0.8 % (0.0-1.0); %Eosinophils 2.9 % (0.0-10.0); %Lymphocytes 23.2 % (21.0-51.0); %Monocytes 9.4 % (0.0-10.0); %Neutrophils 63.6 % (42.0-75.0); Hemoglobin 12.1 g/dL (14.0-18.0); Mean Corpuscular HGB CONC 32.7 g/dL (32.0-36.0); Mean Corpuscular Hemoglobin 30.4 pg (27.0-31.0); Mean Platelet Volume 8.2 fL (7.4-10.4); Platelet Count 175 thou/uL (130-400); RBC Distribution Width 14.1 % (11.5-14.5); Red Blood Cell (RBC) Count 3.97 mill/uL (4.70-6.10); White Blood Cell (WBC) Count 5.7 thou/uL (4.8-10.8)
[2020-09-18 08:12] LABS: ALT (SGPT) 13 U/L (8-55); AST (SGOT) 15 U/L (5-34); Albumin 3.4 g/dL (3.4-4.8); Alkaline Phosphatase 107 U/L (40-110); Anion Gap 13 mmol/L (10-20); BUN (Urea Nitrogen) 7 mg/dL (8.4-25.7); Bilirubin, Total 0.5 mg/dL (0.2-1.2); Calc. Creatinine Clearance 80 mL/min (70-130); Calcium 8.5 mg/dL (7.8-10.44); Carbon Dioxide 21 mmol/L (23-31); Chloride 110 mmol/L (98-107); Globulin 2.8 g/dL (2.4-3.5); Glucose 87 mg/dL (83-110); Potassium 4.2 mmol/L (3.5-5.1); Protein, Total 6.2 g/dL (5.8-8.1); Sodium 140 mmol/L (136-145)
[2020-09-18] MEDS: Saccharomyces boulardii 250 MG CAP PO SCH (09:44)
[2020-09-18] MEDS: Sodium Chloride 0.9% 1,000 ML IV SCH (09:44)
[2020-09-18] MEDS: Amiodarone 200 MG TAB PO SCH (09:45)
[2020-09-18 16:46] VITALS: BP 139/74; TEMP 97.8
== END 2020-09-18 18:41 | disposition home or self-care (01) | DRG 640 ==
LOC: ERS 11:46 → 2NO 15:54
PROVIDERS: ADMIT Internal Medicine; ATTEND Emergency Medicine
DX: E86.9 Volume depletion, unspecified (principal); G93.41 Metabolic encephalopathy; N39.0 Urinary tract infection, site not specified; N17.9 Acute kidney failure, unspecified; Z66 Do not resuscitate; Z20.822 Contact with and (suspected) exposure to COVID-19; B96.1 Klebsiella pneumoniae [K. pneumoniae] as the cause of diseases classified elsewhere; E86.0 Dehydration; G30.9 Alzheimer's disease, unspecified; F02.80 Dementia in other diseases classified elsewhere, unspecified severity, without behavioral disturbance, psychotic disturbance, mood disturbance, and anxiety; E78.5 Hyperlipidemia, unspecified; I10 Essential (primary) hypertension; M10.9 Gout, unspecified; I48.91 Unspecified atrial fibrillation; K21.9 Gastro-esophageal reflux disease without esophagitis; Z87.891 Personal history of nicotine dependence; Z79.899 Other long term (current) drug therapy
CPT/HCPCS: 0240U; 36415; 51701; 70450; 71045; 71275; 80048; 80053; 81003; 81015; 82550; 83605; 83690; 83735; 83880; 84439; 84443; 84484; 85025; 85610; 85730; 87040; 87077; 87086; 87186; 93005; 94760; 96365; 96375; J0692; J0696; J3370; J3490; Q9967

== ENCOUNTER 2020-09-19 10:46 | Emergency (ER) | payer MEDICARE, OTHER ==
[2020-09-19 12:01] LABS: #Eosinphils 0.2 thou/uL (0.0-0.7); #Lymphocytes 1.4 thou/uL (1.20-3.40); #Monocytes 0.8 thou/uL (0.11-0.59); #Neutrophils 5.1 thou/uL (1.40-6.50); %Basophils 0.5 % (0.0-1.0); %Eosinophils 2.1 % (0.0-10.0); %Lymphocytes 18.5 % (21.0-51.0); %Monocytes 10.6 % (0.0-10.0); %Neutrophils 68.4 % (42.0-75.0); Hemoglobin 13.9 g/dL (14.0-18.0); Mean Corpuscular HGB CONC 32.9 g/dL (32.0-36.0); Mean Corpuscular Hemoglobin 30.5 pg (27.0-31.0); Mean Corpuscular Volume 92.6 fL (78.0-98.0); Mean Platelet Volume 8.9 fL (7.4-10.4); Platelet Count 213 thou/uL (130-400); RBC Distribution Width 14.3 % (11.5-14.5); Red Blood Cell (RBC) Count 4.57 mill/uL (4.70-6.10); White Blood Cell (WBC) Count 7.5 thou/uL (4.8-10.8)
[2020-09-19 12:27] LABS: ALT (SGPT) 16 U/L (8-55); AST (SGOT) 16 U/L (5-34); Albumin 3.7 g/dL (3.4-4.8); Alkaline Phosphatase 124 U/L (40-110); Anion Gap 14 mmol/L (10-20); BUN (Urea Nitrogen) 8 mg/dL (8.4-25.7); Bilirubin, Total 0.7 mg/dL (0.2-1.2); Calc. Creatinine Clearance 0 mL/min (70-130); Calcium 9.1 mg/dL (7.8-10.44); Carbon Dioxide 23 mmol/L (23-31); Chloride 105 mmol/L (98-107); Globulin 3.5 g/dL (2.4-3.5); Glucose 99 mg/dL (83-110); Potassium 3.9 mmol/L (3.5-5.1); Protein, Total 7.2 g/dL (5.8-8.1); Sodium 138 mmol/L (136-145)
[2020-09-19 12:45] LABS: Bacteria/HPF None Seen HPF (None Seen); Bilirubin Negative (Negative); Blood, Urine Negative (Negative); Clarity Clear (Clear); Glucose, Urine (Dipstick) Normal (Negative); Ketone, Urine Negative (Negative); Leukocyte 250 Leu/uL (Negative); Nitrite Negative (Negative); Protein, Urine (Dipstick) Negative (Neg-Trace); RBC/HPF 0-3 HPF (0-3); Specific Gravity, Urine 1.012 (1.002-1.036); Squamous Epithelial None Seen HPF (0-3); Urobilinogen Normal mg/dL (Less than 2)
== END 2020-09-19 16:00 ==
LOC: ERS 10:46
DX: R55 Syncope and collapse (principal); I10 Essential (primary) hypertension; I48.91 Unspecified atrial fibrillation; M10.9 Gout, unspecified; Z87.891 Personal history of nicotine dependence; G30.9 Alzheimer's disease, unspecified; F02.80 Dementia in other diseases classified elsewhere, unspecified severity, without behavioral disturbance, psychotic disturbance, mood disturbance, and anxiety
CPT/HCPCS: 36415; 51701; 71045; 80053; 81003; 81015; 84484; 85025; 93005

== ENCOUNTER 2022-10-13 14:37 | Emergency (ER) | payer MEDICARE, OTHER ==
[2022-10-13] MEDS ORDERED: Boostrix 0.5 ML (Tdap) VIAL (>/=7 yrs of age) ONE (14:52)
[2022-10-13] MEDS ORDERED: Lidocaine 1% PF 5 ML VIAL ONE (15:16)
[2022-10-13] MEDS ORDERED: Bacitracin 1 PK ONE (17:07)
== END 2022-10-13 18:30 | disposition home or self-care (01) ==
LOC: ERS 14:37
DX: S01.81XA Laceration without foreign body of other part of head, initial encounter (principal); Z87.891 Personal history of nicotine dependence; W18.30XA Fall on same level, unspecified, initial encounter
CPT/HCPCS: 12002; 70450; 70486; 72125; 90471; 90715